=== PATIENT | female | born 1960 | race Caucasian/White ===

== ENCOUNTER → 2018-01-21 17:38 | Outpatient (CLI) | payer MEDICARE, SELFPAY ==
[2018-01-21 18:42] LABS: Basophils # 0.1 K/mm3 (0-0.2); Basophils % 0.6 % (0.1-2.0); Eosinophils # 0.1 K/mm3 (0.0-0.4); Hematocrit 48.7 % (37.0-47.0); Hemoglobin 15.8 g/dL (12.2-16.2); Lymphocytes # 2.7 K/mm3 (0.7-4.5); Lymphocytes % 30.5 K/mm3 (10-50); Mean Corpuscular HGB Conc 32.5 g/dL (31.8-35.4); Mean Corpuscular Hemoglobin 31.5 pg (27.0-31.2); Monocytes # 0.4 K/mm3 (0.1-1.0); Monocytes % 4.4 % (1.7-9.3); Neutrophils # 5.6 K/mm3 (1.8-7.8); Neutrophils % 63.4 % (37.0-80.0); Platelet Count 262 K/mm3 (142-424); Red Blood Count 5.02 M/mm3 (4.20-5.40); Red Cell Distribution Width 13.6 % (11.5-17.5); White Blood Count 8.8 K/mm3 (4.8-10.8)
[2018-01-21 19:15] LABS: Alanine Aminotransferase 17 U/L (12-78); Albumin Level 4.6 gm/dL (3.4-5.0); Albumin/Globulin Ratio 1.2 (1.1-1.8); Alkaline Phosphatase 121 U/L (46-116); Anion Gap 18.9 mEq/L (5-15); Aspartate Amino Transferase 19 U/L (15-37); Bilirubin,Total 0.3 mg/dL (0.2-1.0); Blood Urea Nitrogen 13 mg/dL (7-18); Calcium 9.1 mg/dL (8.5-10.1); Carbon Dioxide 22 mmol/L (21.0-32.0); Chloride 105 mmol/L (98-107); Chol/HDL Ratio 4.6 (1-3.5); Cholesterol 246 mg/dL (140-200); Creatinine,Serum 0.86 mg/dL (0.55-1.02); Estimated Glomerular Filt Rate 68 ml/min (>60); Free T4 (Free Thyroxine) 0.78 ng/dl (0.76-1.46); GFR (African American) 82 ML/MIN (>60); Globulin 3.9 gm/dl (1.3-3.2); Glucose 101 mg/dL (74-106); HDL Cholesterol 54 mg/dL (29-89); LDL Cholesterol 178 mg/dL (0-130); Potassium 3.9 mmoL/L (3.5-5.1); Sodium 142 mmol/L (136-145); Thyroid Stimulating Hormone 1.61 uIU/ml (0.358-3.740); Total Protein,Serum 8.5 gm/dL (6.4-8.2); Triglycerides 70 mg/dL (30-200); VLDL Cholesterol 14 mg/dL (0-40)
[2018-01-21 19:21] LABS: Erythrocyte Sedimentation Rate 12 mm/hr (0-30)
[2018-01-23 15:20] LABS: Vitamin D 25 Hydroxy 20.6 ng/mL (30.0-100.0)
== END ==
PROVIDERS: Visit Provider Emergency Medicine
DX: R53.83 Other fatigue (principal); E78.2 Mixed hyperlipidemia
CPT/HCPCS: 80053; 80061; 82652; 84439; 84443; 85025; 85651

== ENCOUNTER → 2018-02-26 20:48 | Outpatient (CLI) | payer MEDICARE, SELFPAY ==
[2018-02-26 22:57] LABS: Amphetamine/Metha Screen,Urine Negative ng/mL (<1000); Barbiturates Screen,Urine Negative ng/mL (<200); Benzodiazepines Screen,Urine Positive ng/mL (<200); Cannabinoid Screen,Urine Positive ng/mL (<50); Cocaine Screen,Urine Negative ng/mL (<300); Methadone Screen,Urine Negative ng/mL (<300); Opiate Screen,Urine Positive ng/mL (<300); Phencyclidine Screen,Urine Negative ng/mL (<25)
== END ==
PROVIDERS: Visit Provider Emergency Medicine
DX: Z79.899 Other long term (current) drug therapy (principal)
CPT/HCPCS: 80305

== ENCOUNTER → 2018-03-31 18:23 | Outpatient (CLI) | payer MEDICARE, SELFPAY ==
[2018-03-31 19:58] LABS: Amphetamine/Metha Screen,Urine Negative ng/mL (<1000); Barbiturates Screen,Urine Negative ng/mL (<200); Benzodiazepines Screen,Urine Positive ng/mL (<200); Cannabinoid Screen,Urine Negative ng/mL (<50); Cocaine Screen,Urine Negative ng/mL (<300); Methadone Screen,Urine Negative ng/mL (<300); Opiate Screen,Urine Positive ng/mL (<300); Phencyclidine Screen,Urine Negative ng/mL (<25)
== END ==
PROVIDERS: Visit Provider Emergency Medicine
DX: Z79.899 Other long term (current) drug therapy (principal)
CPT/HCPCS: 80305

== ENCOUNTER → 2018-04-28 12:46 | Outpatient (CLI) | payer MEDICARE, SELFPAY ==
--- NOTE | 2018-04-28 12:49 | MR_ITS ---
MR head/brain wo con Ordering Physician: Danuta Chávez MD Patient Age: 58 years: Female HISTORY: ITS.REASON: headache, neck pain Old injury 4 years ago. Headache right-sided neck pain. TECHNIQUE: Noncontrast MRI brain Multiplanar FLAIR, T1, T2 weighted images along with axial diffusion/ADC imaging performed on 1.5 T. Siemens, MRI.. COMPARISON :No previous head studies. FINDINGS . No mass lesion nor mass effect. No deep white matter lesions on the sensitive FLAIR and T2 images . No ischemia or infarct evident Supratentorial brain unremarkable. Pituitary and sella unremarkable. Cerebellum & fourth ventricle appear normal & satisfactory. Only note subtle minor asymmetry of the IACs. Most likely merely anatomical variation. The left IAC is more generous than the right IAC. Most likely reflects mainly anatomical variation. Specifically there is a slightly more generous benign-appearing bone & fatty bone marrow seen at apex of right temporal bone . Yields a slightly different angle and More narrow appearance right IAC versus left. No mass lesion is seen here at CP angles clear. May warrant correlation with auditory testing. If any cranial nerve VII or 8 abnormalities dedicated thin thin section scans pre and postcontrast through IACs may be warranted Normal cranial cervical junction on sagittal views. Minor anatomical asymmetry at medulla oblongata. Slightly more flattened appearance the left due to course of left vertebral artery. C1-C2 relationships normal.. Unremarkable upper most C-spine to the c2/3 level Survey images in the region of the [place] unremarkable. Patent left posterior communicating artery noted. . visualized paranasal sinuses are clear. Engorgement nasal turbinates with minor deviation nasal septum convexity to the left.. Orbits unremarkable. ------IMPRESSION 1. No significant appearing findings at today's MR brain. No mass lesion. No deep white matter signal abnormalities. No ischemic changes. 2. Note q minor asymmetry at IACs. Favor this merely anatomical asymmetry, which yields a slightly more narrowed appearance at right IAC vs left.... Note comments in text 3. Other minor observations in text- not felt of significance
--- NOTE | 2018-04-28 13:27 | XR_ITS ---
XR cervical spine w flex/ext CLINICAL INDICATION: ITS.REASON: headache, neck pain ORDERING PHYSICIAN: Danuta Chávez MD PATIENT AGE: 58 years Comparison: None FINDINGS: There is minimal anterior subluxation of C4 on C5 of 3 mm in flexion. This is normal in alignment in extension. There is degenerative disc disease at C5-C6 and C6-C7. No fracture or dislocation. Mild foraminal narrowing is noted on the right at C4-5 C5-6. Mild left foraminal narrowing at C5-C6. Carotid artery calcifications are present. IMPRESSION: 1. Degenerative disc disease at C5-C6 and C6-C7 with mild right foraminal narrowing at C4-5 and C5-6 and mild left foraminal narrowing at C6-7. 2. There is 3 mm anterior subluxation of C4 on C5 in flexion.
== END ==
PROVIDERS: PCP Emergency Medicine; Visit Provider Specialist
DX: M54.2 Cervicalgia (principal); R51 Headache
CPT/HCPCS: 70551; 72052

== ENCOUNTER → 2018-04-29 15:47 | Outpatient (CLI) | payer MEDICARE, SELFPAY ==
--- NOTE | 2018-04-29 15:52 | XR_ITS ---
Repeat View XR HISTORY: Neck pain, flexion-extension views ORDERING PHYSICIAN: Danuta Chávez MD PATIENT AGE: 58 years Comparison: 04/28/2018 FINDINGS: There is minimal anterior subluxation of C4 on C5 of 3 mm in flexion. This is normal in alignment in extension. There is degenerative disc disease at C5-C6 and C6-C7. No fracture or dislocation. Mild foraminal narrowing is noted on the right at C4-5 C5-6. Mild left foraminal narrowing at C5-C6. Carotid artery calcifications are present. IMPRESSION: 1. Degenerative disc disease at C5-C6 and C6-C7 with mild right foraminal narrowing at C4-5 and C5-6 and mild left foraminal narrowing at C6-7. 2. There is 3 mm anterior subluxation of C4 on C5 in flexion.
[2018-04-29 21:33] LABS: Amphetamine/Metha Screen,Urine Negative ng/mL (<1000); Barbiturates Screen,Urine Negative ng/mL (<200); Benzodiazepines Screen,Urine Positive ng/mL (<200); Cannabinoid Screen,Urine Negative ng/mL (<50); Cocaine Screen,Urine Negative ng/mL (<300); Methadone Screen,Urine Negative ng/mL (<300); Opiate Screen,Urine Positive ng/mL (<300); Phencyclidine Screen,Urine Negative ng/mL (<25)
== END ==
PROVIDERS: PCP Emergency Medicine; Visit Provider Specialist
DX: Z79.899 Other long term (current) drug therapy (principal)
CPT/HCPCS: 80305

== ENCOUNTER → 2018-04-29 18:16 | Outpatient (CLI) | payer MEDICARE, SELFPAY | PROVIDERS: Visit Provider Emergency Medicine | DX: Z79.899 Other long term (current) drug therapy (principal) | CPT/HCPCS: 80305 ==

== ENCOUNTER → 2018-05-19 12:55 | Outpatient (CLI) | payer MEDICARE, SELFPAY ==
--- NOTE | 2018-05-19 12:55 | MR_ITS ---
MR cervical spine wo con, MR 3-d myelogram/MRCP HISTORY: Neck pain . RT shoulder pain. ITS.REASON: neck pain ORDERING PHYSICIAN: Junior Johnson MD PATIENT AGE: 58 years Comparison: X-RAY 04-28-18 TECHNIQUE: Standard multiplanar multiecho sequences are performed without contrast. 3-D MIP and myelographic images are also rendered and reviewed FINDINGS: There is normal alignment. The craniocervical junction has an unremarkable appearance. C2-C3: Unremarkable. C3-C4: Borderline congenital narrowing of the canal is 10 mm without impingement. There is mild right-sided foraminal narrowing from uncovertebral hypertrophy C4-C5: Borderline congenital narrowing of the canal at 11 mm. There is some uncovertebral hypertrophy on the right with right-sided foraminal narrowing C5-C6: Degenerative disc disease with bulging disc. There is moderate bilateral foraminal narrowing from uncovertebral hypertrophy slightly greater on the right. There is narrowing of the canal at 10 mm but no flattening of the cord. C6-C7: Degenerative disc disease with bulging disc without cord impingement. Incidental note made of lipomatous involvement of C7 vertebral body. C7-T1: Unremarkable. IMPRESSION: Mild cervical spondylosis with degenerative disc disease along with uncovertebral hypertrophy and foraminal narrowing. There is borderline canal stenosis. No cord impingement or flattening. Please see above for detailed description at each level No extruded herniated disc evident
== END ==
PROVIDERS: PCP Emergency Medicine; Visit Provider Emergency Medicine
DX: M54.2 Cervicalgia (principal)
CPT/HCPCS: 72141; 76376

== ENCOUNTER → 2018-05-27 17:21 | Outpatient (CLI) | payer MEDICARE, SELFPAY ==
[2018-05-27 21:40] LABS: Amphetamine/Metha Screen,Urine Negative ng/mL (<1000); Barbiturates Screen,Urine Negative ng/mL (<200); Benzodiazepines Screen,Urine Positive ng/mL (<200); Cannabinoid Screen,Urine Negative ng/mL (<50); Cocaine Screen,Urine Negative ng/mL (<300); Methadone Screen,Urine Negative ng/mL (<300); Opiate Screen,Urine Positive ng/mL (<300); Phencyclidine Screen,Urine Negative ng/mL (<25)
== END ==
PROVIDERS: Visit Provider Emergency Medicine
DX: M47.812 Spondylosis without myelopathy or radiculopathy, cervical region (principal)
CPT/HCPCS: 80305

== ENCOUNTER → 2018-06-25 14:23 | Outpatient (CLI) | payer MEDICARE, SELFPAY ==
--- NOTE | 2018-06-25 14:25 | MR_ITS ---
MR lumbar spine wo con HISTORY: ITS.REASON: back pain ORDERING PHYSICIAN: Junior Johnson MD PATIENT AGE: 58 years Comparison: None TECHNIQUE: Standard multiplanar multiecho sequences are performed without contrast. 3-D MIP and myelographic images are also rendered and reviewed FINDINGS: Standard sagittal and axial sequences were performed. The marrow signal is normal in all lumbar vertebrae. The spinal canal is normal in size in the upper lumbar spine. At the L4-5 and L5-S1 levels there is moderate hypertrophic facet changes resulting in a borderline small spinal canal. In addition is a mild diffuse disc bulge L4-5 and this finding combined with hypertrophic facet changes result in mild bilateral neural foraminal narrowing. There is a small central disc protrusion L5-S1. The remaining lumbar disks appear normal. The myelogram sequence demonstrates mild multilevel extradural defects at the disc space levels most prominent at the L4-5 level. The conus is normal. IMPRESSION: Borderline spinal stenosis L4-5 secondary to a combination of mild diffuse disc bulge and hypertrophic facet changes, no other significant abnormality noted
== END ==
PROVIDERS: PCP Emergency Medicine; Visit Provider Emergency Medicine
DX: M54.9 Dorsalgia, unspecified (principal); M54.5 Low back pain
CPT/HCPCS: 72148; 76376

== ENCOUNTER → 2018-07-07 15:49 | Outpatient (POV) | payer MEDICARE, SELFPAY ==
[2018-07-07 15:58] VITALS: BP 158/99; PULSE 102; RESP 18; O2SAT 98
--- NOTE | 2018-07-08 15:03 | HMH.PMCON ---
Assessment and Plan (1) Spondylosis, cervical Current visit: No Status: Chronic Category: Medical Code(s): M47.812 - Spondylosis without myelopathy or radiculopathy, cervical region (2) DDD (degenerative disc disease), cervical Current visit: No Status: Chronic Category: Medical Code(s): M50.30 - Other cervical disc degeneration, unspecified cervical region (3) Back Pain Current visit: No Status: Chronic Category: Medical Code(s): M54.9 - Dorsalgia, unspecified - Assessment and plan all Dx Assessment and Plan for all problems:: Patient is uninterested in injective therapy. I discussed with her that that would be our first line of treatment with her condition. Patient is to take some information and call our office if she decides she would like to pursue this. Dr. Carvalho has reviewed this note and agrees with this plan of care. This note was dictated using voice recognition software and may contain errors or omissions HPI - Data of Consult Consult date: 07/07/18 Requesting Physician: Jodie Hensley APRN Primary Care Provider: Junior Johnson MD - Consult Narrative Reason for consult: Back pain History of present illness: Ms. Love is a 58 year old female who presents today for consultation in regards to her along with her neck pain. Patient has had back problems for years. Patient states it got bad in 2012 when she was thrown from a horse and landed on her back. She states is gradually gotten worse. She states that she has been to the neurologist here. She has tried and failed massage therapy physical therapy and pain meds. Patient does have an MRI and some x-rays showing borderline spinal stenosis mild disc bulge. And some cervical spondylosis. Patient and I discussed epidural injections she states she does not think she is interested in this at this time. She rates her pain a 6 out of 10 CC: Jodie Hensley APRN [facility] History I have reviewed the patient's past medical history: Yes Medical History: Reports:: Anxiety, Depression, Hyperlipidemia, Hypertension Laterality Cases: Bilateral: Mastectomy Other Surgeries: Yes: Cholecystectomy, Hysterectomy-Total, Other Amputation: No Fractures: No - *Social History Smoking Status: Current every day smoker Tobacco Type: cigarettes # Packs/Day (cigarettes): 1 #Yrs smoked (if former smoker): 44 Alcohol Intake: never Alcohol Intake Frequency:: holidays/special occasions only Substance Use Type: former substance user *Occupational Status:: disabled Housing: apartment Household Members: none *Travel in the last 8 weeks: None - Psychiatric History Expresses thoughts of harming self/others: None Suicide Plan Description: No Plan Pschychiatric History:: Reports:: Anxiety, Depression Family Hx:: Heart Attack, Cancer Review of Systems - Review of Systems ROS General: no recent weight change, no fever, no sleep disturbances Respiratory: no cough, no shortness of air, no recurring pulmonary infections Cardiovascular/Peripheral Vascular: No chest pain, No palpitations, no edema, no shortness of breath. Gastrointestinal: no incontinence, normal bowel movements reported Genitourinary: no incontinence Musculoskeletal: Back pain, neck pain Psychiatric: normal mood/ affect Neurological: [denies weakness in extremities], [denies balance issues] Meds Home Medications Medication Instructions Recorded Confirmed Type diazepam 10 mg tablet 10 mg PO BID PRN 01/21/18 05/27/18 History diclofenac 1 % topical gel 2 g TOPICAL QID 01/21/18 05/27/18 History hydroxyzine HCl 50 mg tablet 50 mg PO QID PRN 01/21/18 05/27/18 History cholecalciferol (vitamin D3) 1,000 1,000 unit PO DAILY 90 Days #90 cap 01/27/18 05/27/18 Rx unit capsule ergocalciferol (vitamin D2) 50,000 50,000 unit PO QWEEK 90 Days #14 01/27/18 05/27/18 Rx unit capsule cap rosuvastatin 40 mg tablet 40 mg PO QHS #90 tab 01/27/18 05/27/18 Rx nitroglycerin 0.4 mg sublingu
--- NOTE | 2018-07-08 15:06 | P.CONS_ITS ---
Assessment and Plan (1) Spondylosis, cervical Current visit: No Status: Chronic Category: Medical Code(s): M47.812 - Spondylosis without myelopathy or radiculopathy, cervical region (2) DDD (degenerative disc disease), cervical Current visit: No Status: Chronic Category: Medical Code(s): M50.30 - Other cervical disc degeneration, unspecified cervical region (3) Back Pain Current visit: No Status: Chronic Category: Medical Code(s): M54.9 - Dorsalgia, unspecified - Assessment and plan all Dx Assessment and Plan for all problems:: Patient is uninterested in injective therapy. I discussed with her that that would be our first line of treatment with her condition. Patient is to take some information and call our office if she decides she would like to pursue this. Dr. Carvalho has reviewed this note and agrees with this plan of care. This note was dictated using voice recognition software and may contain errors or omissions HPI - Data of Consult Consult date: 07/07/18 Requesting Physician: Jodie Hensley APRN Primary Care Provider: uJnior Johnson MD - Consult Narrative Reason for consult: Back pain History of present illness: Ms. Love is a 58 year old female who presents today for consultation in regards to her along with her neck pain. Patient has had back problems for years. Patient states it got bad in 2012 when she was thrown from a horse and landed on her back. She states is gradually gotten worse. She states that she has been to the neurologist here. She has tried and failed massage therapy physical therapy and pain meds. Patient does have an MRI and some x-rays showing borderline spinal stenosis mild disc bulge. And some cervical spondylosis. Patient and I discussed epidural injections she states she does not think she is interested in this at this time. She rates her pain a 6 out of 10 CC: Jodie Hensley APRN [facility] History I have reviewed the patient's past medical history: Yes Medical History: Reports:: Anxiety, Depression, Hyperlipidemia, Hypertension Laterality Cases: Bilateral: Mastectomy Other Surgeries: Yes: Cholecystectomy, Hysterectomy-Total, Other Amputation: No Fractures: No - *Social History Smoking Status: Current every day smoker Tobacco Type: cigarettes # Packs/Day (cigarettes): 1 #Yrs smoked (if former smoker): 44 Alcohol Intake: never Alcohol Intake Frequency:: holidays/special occasions only Substance Use Type: former substance user *Occupational Status:: disabled Housing: apartment Household Members: none *Travel in the last 8 weeks: None - Psychiatric History Expresses thoughts of harming self/others: None Suicide Plan Description: No Plan Pschychiatric History:: Reports:: Anxiety, Depression Family Hx:: Heart Attack, Cancer Review of Systems - Review of Systems ROS General: no recent weight change, no fever, no sleep disturbances Respiratory: no cough, no shortness of air, no recurring pulmonary infections Cardiovascular/Peripheral Vascular: No chest pain, No palpitations, no edema, no shortness of breath. Gastrointestinal: no incontinence, normal bowel movements reported Genitourinary: no incontinence Musculoskeletal: Back pain, neck pain Psychiatric: normal mood/ affect Neurological: [denies weakness in extremities], [denies balance issues] Meds Home Medications Medication Instructions Recorded Confirmed Type diazepam 10 mg tablet 10 mg PO BID PRN 01/21/18 03
== END ==
PROVIDERS: PCP Emergency Medicine; Visit Provider Clinical Nurse Specialist Family Health
DX: M47.812 Spondylosis without myelopathy or radiculopathy, cervical region (principal); M50.30 Other cervical disc degeneration, unspecified cervical region
CPT/HCPCS: 99202

== ENCOUNTER → 2018-07-22 18:13 | Outpatient (CLI) | payer MEDICARE, SELFPAY ==
[2018-07-22 19:09] LABS: Amphetamine/Metha Screen,Urine Negative ng/mL (<1000); Barbiturates Screen,Urine Negative ng/mL (<200); Benzodiazepines Screen,Urine Positive ng/mL (<200); Cannabinoid Screen,Urine Positive ng/mL (<50); Cocaine Screen,Urine Negative ng/mL (<300); Methadone Screen,Urine Negative ng/mL (<300); Opiate Screen,Urine Positive ng/mL (<300); Phencyclidine Screen,Urine Negative ng/mL (<25)
== END ==
PROVIDERS: Visit Provider Emergency Medicine
DX: M54.2 Cervicalgia (principal)
CPT/HCPCS: 80305

== ENCOUNTER → 2018-08-04 10:57 | Outpatient (CLI) | payer MEDICARE, SELFPAY ==
--- NOTE | 2018-08-04 11:09 | NM_ITS ---
CARDIOLITE SPECT MYOCARDIAL PERFUSION LEXISCAN, REST AND STRESS: [facility] REVIEW QGS EF AND WALL MOTION EVALUATION: QPS - PERFUSION EVALUATION HISTORY: Chest pain, SOB, Fatigue, HTN, Tobacco use, Family History DOSE: 10.71 mCi technetium 99m mibi intravenously at rest followed by 30.9 mCi technetium 99m mibi following the intravenous ministration of 0.4 mg of Lexiscan. Resting blood pressure is 181/87. Stress blood pressure 178/93. FINDINGS: Ejection fraction is calculated to be 62%. SPECT stress images reveal decreased activity in the mid anterior apical wall while rest images reveal no significant change. Gated images calculated ejection fraction of 62% with normal wall motion IMPRESSION: Mid anterior apical defect both stress and rest accompanied by normal ejection fraction and wall motion. This test is most consistent with breast attenuation however clinical correlation is advised
--- NOTE | 2018-08-04 12:17 | HMH.ITSHM ---
Current Home Medications as stated by this patient Ioana Love or customer success representative. []LORTAB VALIUM CRESTOR LISINOPRIL NITRO VITAMINS ASA AMLODIPINE AMITRIPTYLINE
== END ==
PROVIDERS: PCP Emergency Medicine; Visit Provider Emergency Medicine
DX: R07.9 Chest pain, unspecified (principal)
CPT/HCPCS: 78452; 93017; A9502; J2785

== ENCOUNTER → 2018-09-19 16:37 | Outpatient (CLI) | payer MEDICARE, SELFPAY ==
[2018-09-19 18:07] LABS: Amphetamine/Metha Screen,Urine Negative ng/mL (<1000); Barbiturates Screen,Urine Negative ng/mL (<200); Benzodiazepines Screen,Urine Positive ng/mL (<200); Cannabinoid Screen,Urine Positive ng/mL (<50); Cocaine Screen,Urine Negative ng/mL (<300); Methadone Screen,Urine Negative ng/mL (<300); Opiate Screen,Urine Positive ng/mL (<300); Phencyclidine Screen,Urine Negative ng/mL (<25)
== END ==
PROVIDERS: Visit Provider Emergency Medicine
DX: M54.2 Cervicalgia (principal)
CPT/HCPCS: 80305

== ENCOUNTER → 2018-11-19 17:17 | Outpatient (CLI) | payer MEDICARE, SELFPAY ==
[2018-11-19 19:03] LABS: Amphetamine/Metha Screen,Urine Negative ng/mL (<1000); Barbiturates Screen,Urine Negative ng/mL (<200); Benzodiazepines Screen,Urine Positive ng/mL (<200); Cannabinoid Screen,Urine Positive ng/mL (<50); Cocaine Screen,Urine Negative ng/mL (<300); Methadone Screen,Urine Negative ng/mL (<300); Opiate Screen,Urine Positive ng/mL (<300); Phencyclidine Screen,Urine Negative ng/mL (<25)
== END ==
PROVIDERS: Visit Provider Emergency Medicine
DX: M47.812 Spondylosis without myelopathy or radiculopathy, cervical region (principal)
CPT/HCPCS: 80305

== ENCOUNTER → 2019-01-09 17:21 | Outpatient (CLI) | payer MEDICARE, SELFPAY ==
[2019-01-09 18:13] LABS: Amphetamine/Metha Screen,Urine Negative ng/mL (<1000); Barbiturates Screen,Urine Negative ng/mL (<200); Benzodiazepines Screen,Urine Positive ng/mL (<200); Cannabinoid Screen,Urine Negative ng/mL (<50); Cocaine Screen,Urine Negative ng/mL (<300); Methadone Screen,Urine Negative ng/mL (<300); Opiate Screen,Urine Positive ng/mL (<300); Phencyclidine Screen,Urine Negative ng/mL (<25)
== END ==
PROVIDERS: Visit Provider Emergency Medicine
DX: G89.29 Other chronic pain (principal)
CPT/HCPCS: 80305

== ENCOUNTER → 2019-01-26 14:38 | Outpatient (CLI) | payer MEDICARE, SELFPAY ==
--- NOTE | 2019-01-26 14:47 | XR_ITS ---
PROCEDURE: XR SHOULDER RT MIN 2V CLINICAL INDICATION: Shoulder pain Right shoulder pain COMPARISON: No exams were available for comparison FINDINGS: No fracture, dislocation, lytic change, or blastic change evident. No significant degenerative change IMPRESSION: No acute findings. Dictated by: Izaiah Collazo MD 01/26/2019 15:09 Electronically signed by Izaaih Collazo MD in [place] 01/26/2019 15:10
== END ==
PROVIDERS: PCP Emergency Medicine; Visit Provider Orthopaedic Surgery
DX: M25.511 Pain in right shoulder (principal)
CPT/HCPCS: 73030

== ENCOUNTER → 2019-03-11 17:52 | Outpatient (CLI) | payer MEDICARE, SELFPAY ==
[2019-03-11 20:42] LABS: Amphetamine/Metha Screen,Urine Negative ng/mL (<1000); Barbiturates Screen,Urine Negative ng/mL (<200); Benzodiazepines Screen,Urine Positive ng/mL (<200); Cannabinoid Screen,Urine Positive ng/mL (<50); Cocaine Screen,Urine Negative ng/mL (<300); Methadone Screen,Urine Negative ng/mL (<300); Opiate Screen,Urine Positive ng/mL (<300); Phencyclidine Screen,Urine Negative ng/mL (<25)
== END ==
PROVIDERS: Visit Provider Emergency Medicine
DX: M54.2 Cervicalgia (principal)
CPT/HCPCS: 80305

== ENCOUNTER → 2019-05-08 17:18 | Outpatient (CLI) | payer MEDICARE, SELFPAY ==
[2019-05-08 18:28] LABS: Amphetamine/Metha Screen,Urine Negative ng/mL (<1000); Barbiturates Screen,Urine Negative ng/mL (<200); Benzodiazepines Screen,Urine Positive ng/mL (<200); Cannabinoid Screen,Urine Positive ng/mL (<50); Cocaine Screen,Urine Negative ng/mL (<300); Methadone Screen,Urine Negative ng/mL (<300); Opiate Screen,Urine Positive ng/mL (<300); Phencyclidine Screen,Urine Negative ng/mL (<25)
== END ==
PROVIDERS: Visit Provider Emergency Medicine
DX: M47.812 Spondylosis without myelopathy or radiculopathy, cervical region (principal)
CPT/HCPCS: 80305

== ENCOUNTER → 2019-08-03 16:43 | Outpatient (CLI) | payer MEDICARE, SELFPAY ==
[2019-08-03 17:30] LABS: Basophils # 0.1 K/mm3 (0-0.2); Basophils % 0.9 % (0.1-2.0); Chloride 108 mmol/L (98-107); Eosinophils # 0.2 K/mm3 (0.0-0.4); Eosinophils % 2.5 % (0.1-12.0); Hematocrit 41.8 % (37.0-47.0); Hemoglobin 13.4 g/dL (12.2-16.2); Lymphocytes % 33.6 % (10-50); Mean Corpuscular HGB Conc 32.2 g/dL (31.8-35.4); Mean Corpuscular Hemoglobin 30.6 pg (27.0-31.2); Mean Corpuscular Volume 95.2 fl (81-99); Monocytes # 0.3 K/mm3 (0.1-1.0); Monocytes % 5.6 % (1.7-9.3); Neutrophils # 3.5 K/mm3 (1.8-7.8); Neutrophils % 57.5 % (37.0-80.0); Platelet Count 255 K/mm3 (142-424); Potassium 4.6 mmoL/L (3.5-5.1); Red Blood Count 4.39 M/mm3 (4.20-5.40); Red Cell Distribution Width 12.5 % (11.5-17.5); Sodium 137 mmol/L (136-145)
[2019-08-03 17:32] LABS: Alanine Aminotransferase 17 U/L (12-78); Aspartate Amino Transferase 26 U/L (14-36); Blood Urea Nitrogen 13 mg/dl (7-17); Estimated Glomerular Filt Rate 85 ml/min (>60); GFR (African American) 103 ML/MIN (>60)
[2019-08-03 17:33] LABS: Albumin Level 4.5 g/dl (3.5-5.0); Albumin/Globulin Ratio 1.5 (1.1-1.8); Alkaline Phosphatase 46 U/L (38-126); Anion Gap 9.6 mEq/L (5-15); Bilirubin,Total 0.3 mg/dl (0.2-1.3); Calcium 9.7 mg/dl (8.4-10.2); Carbon Dioxide 24 mmol/L (22.0-30.0); Cholesterol 147 mg/dl (140-200); Glucose 110 mg/dl (74-100); Total Protein,Serum 7.5 g/dl (6.3-8.2); Triglycerides 111 mg/dl (30-150); VLDL Cholesterol 22 mg/dL (0-40)
[2019-08-03 17:34] LABS: Chol/HDL Ratio 2.8 (1-3.5); HDL Cholesterol 53 mg/dl (40-60)
[2019-08-03 17:45] LABS: Direct LDL Cholesterol 88.11 mg/dL (100-129)
[2019-08-03 17:50] LABS: T4 (Thyroxine) 6.1 ug/dl (5.53-11.0)
[2019-08-03 18:04] LABS: Thyroid Stimulating Hormone 1.19 uIU/mL (0.465-4.68)
== END ==
PROVIDERS: Visit Provider Emergency Medicine
DX: M25.50 Pain in unspecified joint (principal); A60.09 Herpesviral infection of other urogenital tract; I10 Essential (primary) hypertension; E66.3 Overweight
CPT/HCPCS: 80053; 80061; 82652; 84436; 84443; 85025

== ENCOUNTER → 2020-02-02 14:26 | Outpatient (CLI) | payer MEDICARE, SELFPAY ==
[2020-02-02 16:36] VITALS: PULSE 65; PULSE 68
== END ==
PROVIDERS: PCP Emergency Medicine; Visit Provider Emergency Medicine
DX: R06.02 Shortness of breath (principal)
CPT/HCPCS: 94060; 94640

== ENCOUNTER → 2020-03-31 13:55 | Outpatient (CLI) | payer MEDICARE, SELFPAY ==
--- NOTE | 2020-03-31 13:59 | XR_ITS ---
PROCEDURE: XR FOOT WT BEARING LT 3V CLINICAL INDICATION: foot pain COMPARISON: No exams were available for comparison FINDINGS: No fracture or dislocation. No lytic or blastic change. There is normal mineralization. The joint spaces are well-preserved. No significant degenerative/arthritic changes. No erosive changes evident. Other findings:There is a well-circumscribed cystic region involving distal aspect of the 1st metatarsal at the diaphyseal metaphyseal junction. The cyst measures approximately 5 mm contiguous with the medial cortical surface. IMPRESSION: No acute finding. Small periarticular benign-appearing cyst at the distal aspect of the 1st metatarsal Dictated by: Izaiah Collazo MD 03/31/2020 17:05 Izaiah Collazo MD in [place] 03/31/2020 17:05
--- NOTE | 2020-03-31 13:59 | XR_ITS ---
PROCEDURE: XR FOOT WT BEARING RT 3V CLINICAL INDICATION: foot pain COMPARISON: No exams were available for comparison FINDINGS: Mild hallux valgus with osteoarthritis of the 1st MTP joint and bunion formation at the distal aspect of the 1st metatarsal. The joint spaces are well-preserved. No significant degenerative/arthritic changes. No erosive changes evident. Other findings:None. IMPRESSION: Hallux valgus with osteoarthritis of the 1st MTP joint and bunion formation at the distal aspect of the 1st metatarsal. Dictated by: Izaiah Collazo MD 03/31/2020 17:04 Izaiah Collazo MD in [place] 03/31/2020 17:04
== END ==
PROVIDERS: PCP Emergency Medicine; Visit Provider Podiatrist
DX: M79.671 Pain in right foot (principal); M79.672 Pain in left foot
CPT/HCPCS: 73630

== ENCOUNTER → 2020-05-16 19:52 | Outpatient (CLI) | payer MEDICARE, SELFPAY ==
[2020-05-16 21:19] LABS: Amphetamine/Metha Screen,Urine Negative ng/ml (<1000)
[2020-05-16 21:20] LABS: Barbiturates Screen,Urine Negative ng/ml (<200); Benzodiazepines Screen,Urine Positive ng/ml (<200)
[2020-05-16 21:21] LABS: Cannabinoid Screen,Urine Positive ng/ml (<50)
[2020-05-16 21:22] LABS: Cocaine Screen,Urine Negative ng/ml (<300)
[2020-05-16 21:23] LABS: Methadone Screen,Urine Negative ng/ml (<300); Opiate Screen,Urine Positive ng/ml (<300)
[2020-05-16 21:24] LABS: Phencyclidine Screen,Urine Negative ng/ml (<25)
== END ==
PROVIDERS: Visit Provider Emergency Medicine
DX: M47.812 Spondylosis without myelopathy or radiculopathy, cervical region (principal); Z79.899 Other long term (current) drug therapy
CPT/HCPCS: 80305

== ENCOUNTER → 2020-07-11 17:16 | Outpatient (CLI) | payer MEDICARE, SELFPAY ==
[2020-07-11 18:21] LABS: Amphetamine/Metha Screen,Urine Negative ng/ml (<1000)
[2020-07-11 18:22] LABS: Barbiturates Screen,Urine Negative ng/ml (<200)
[2020-07-11 18:24] LABS: Benzodiazepines Screen,Urine Positive ng/ml (<200); Cannabinoid Screen,Urine Negative ng/ml (<50)
[2020-07-11 18:25] LABS: Cocaine Screen,Urine Negative ng/ml (<300)
[2020-07-11 18:26] LABS: Methadone Screen,Urine Negative ng/ml (<300); Opiate Screen,Urine Positive ng/ml (<300)
[2020-07-11 18:27] LABS: Phencyclidine Screen,Urine Negative ng/ml (<25)
== END ==
PROVIDERS: Visit Provider Emergency Medicine
DX: M47.812 Spondylosis without myelopathy or radiculopathy, cervical region (principal)
CPT/HCPCS: 80305

== ENCOUNTER → 2020-09-05 17:39 | Outpatient (CLI) | payer MEDICARE, SELFPAY ==
[2020-09-05 18:29] LABS: Amphetamine/Metha Screen,Urine Negative ng/ml (<1000)
[2020-09-05 18:31] LABS: Cannabinoid Screen,Urine Positive ng/ml (<50)
[2020-09-05 18:32] LABS: Barbiturates Screen,Urine Negative ng/ml (<200); Benzodiazepines Screen,Urine Positive ng/ml (<200)
[2020-09-05 18:33] LABS: Cocaine Screen,Urine Negative ng/ml (<300)
[2020-09-05 18:34] LABS: Methadone Screen,Urine Negative ng/ml (<300); Opiate Screen,Urine Positive ng/ml (<300)
[2020-09-05 18:35] LABS: Phencyclidine Screen,Urine Negative ng/ml (<25)
== END ==
PROVIDERS: Visit Provider Emergency Medicine
DX: E78.5 Hyperlipidemia, unspecified (principal); Z79.899 Other long term (current) drug therapy
CPT/HCPCS: 80305

== ENCOUNTER → 2020-10-31 18:52 | Outpatient (CLI) | payer MEDICARE, SELFPAY ==
[2020-10-31 20:39] LABS: Amphetamine/Metha Screen,Urine Negative ng/ml (<1000)
[2020-10-31 20:41] LABS: Barbiturates Screen,Urine Negative ng/ml (<200)
[2020-10-31 20:42] LABS: Benzodiazepines Screen,Urine Positive ng/ml (<200)
[2020-10-31 20:43] LABS: Cannabinoid Screen,Urine Negative ng/ml (<50); Cocaine Screen,Urine Negative ng/ml (<300)
[2020-10-31 20:44] LABS: Methadone Screen,Urine Negative ng/ml (<300)
[2020-10-31 20:45] LABS: Opiate Screen,Urine Positive ng/ml (<300); Phencyclidine Screen,Urine Negative ng/ml (<25)
== END ==
PROVIDERS: Visit Provider Emergency Medicine
DX: M47.812 Spondylosis without myelopathy or radiculopathy, cervical region (principal)
CPT/HCPCS: 80305

== ENCOUNTER → 2020-11-22 16:07 | Outpatient (POV) | payer MEDICARE, SELFPAY | PROVIDERS: Visit Provider Dermatology | DX: Z00.00 Encounter for general adult medical examination without abnormal findings (principal) ==

== ENCOUNTER → 2020-12-28 18:17 | Outpatient (CLI) | payer MEDICARE, SELFPAY ==
[2020-12-28 20:02] LABS: Amphetamine/Metha Screen,Urine Negative ng/ml (<1000); Barbiturates Screen,Urine Negative ng/ml (<200)
[2020-12-28 20:03] LABS: Benzodiazepines Screen,Urine Positive ng/ml (<200)
[2020-12-28 20:04] LABS: Cannabinoid Screen,Urine Positive ng/ml (<50); Cocaine Screen,Urine Negative ng/ml (<300)
[2020-12-28 20:05] LABS: Methadone Screen,Urine Negative ng/ml (<300)
[2020-12-28 20:06] LABS: Opiate Screen,Urine Positive ng/ml (<300); Phencyclidine Screen,Urine Negative ng/ml (<25)
== END ==
PROVIDERS: Visit Provider Emergency Medicine
DX: M47.812 Spondylosis without myelopathy or radiculopathy, cervical region (principal)
CPT/HCPCS: 80305

== ENCOUNTER → 2021-04-25 16:00 | Outpatient (CLI) | payer MEDICARE, SELFPAY | PROVIDERS: Visit Provider Emergency Medicine | DX: R69 Illness, unspecified (principal); Z20.822 Contact with and (suspected) exposure to COVID-19 | CPT/HCPCS: C9803; U0003; U0005 ==

== ENCOUNTER → 2021-08-18 16:05 | Outpatient (CLI) | payer MEDICARE, SELFPAY ==
[2021-08-18 13:40] LABS: Amphetamine/Metha Screen,Urine Negative ng/ml (<1000)
[2021-08-18 13:41] LABS: Barbiturates Screen,Urine Negative ng/ml (<200); Benzodiazepines Screen,Urine Positive ng/ml (<200)
[2021-08-18 13:42] LABS: Cannabinoid Screen,Urine Positive ng/ml (<50)
[2021-08-18 13:43] LABS: Cocaine Screen,Urine Negative ng/ml (<300); Methadone Screen,Urine Negative ng/ml (<300)
[2021-08-18 13:44] LABS: Opiate Screen,Urine Positive ng/ml (<300)
[2021-08-18 13:45] LABS: Phencyclidine Screen,Urine Negative ng/ml (<25)
== END ==
PROVIDERS: Visit Provider Emergency Medicine
DX: M47.812 Spondylosis without myelopathy or radiculopathy, cervical region (principal)
CPT/HCPCS: 80305

== ENCOUNTER → 2021-09-15 14:18 | Outpatient (CLI) | payer MEDICARE, SELFPAY ==
--- NOTE | 2021-09-15 14:19 | CT_ITS ---
FINAL REPORT TECHNIQUE: Axial imaging of the chest was obtained without contrast. Reformatted images were also obtained and reviewed.This study was performed with techniques to keep radiation doses as low as reasonably achievable, (ALARA). Individualized dose reduction technique using automated exposure control or adjustment of mA and/or kV according to the patient's size were employed. CLINICAL HISTORY: dyspnea/tob use FINDINGS: There is no axillary adenopathy. There is no hilar or mediastinal mass or adenopathy. Heart size is normal. There is no pericardial or pleural effusion. Limited images of the upper abdomen demonstrate postoperative change of cholecystectomy but are otherwise unremarkable.. There is mild pulmonary scarring. A 2 mm nodule is seen in the medial left lower lobe, favor granuloma. No suspicious infiltrate or nodule is identified on lung window images. IMPRESSION: No acute process. Reviewed, Interpreted and Dictated by Aldair Serrato III, MD Transcribed by Skyla Zepeda Authenticated and [facility]
== END ==
PROVIDERS: PCP Emergency Medicine; Visit Provider Nurse Practitioner Family
DX: E78.5 Hyperlipidemia, unspecified (principal); I10 Essential (primary) hypertension; R06.00 Dyspnea, unspecified; R53.83 Other fatigue; R61 Generalized hyperhidrosis; R94.31 Abnormal electrocardiogram [ECG] [EKG]; Z72.0 Tobacco use; I20.8 Other forms of angina pectoris
CPT/HCPCS: 71250

== ENCOUNTER → 2021-09-26 12:51 | Outpatient (CLI) | payer MEDICARE, SELFPAY ==
--- NOTE | 2021-09-26 14:12 | HMH.ITSHM ---
Current Home Medications as stated by this patient Ioana Love or district representative. []VALACYCLOVIR TRAZODONE ROSUVASTATIN RANOLAZINE PANTROPRAZOLE NITRO METOPROLOL LISINOPRIL HYDROCODONE ESTRADIOL DIAZEPAM BUPROPION ASA AMLODIPINE ALBUTEROL
== END ==
PROVIDERS: PCP Emergency Medicine; Visit Provider Nurse Practitioner Family
DX: E78.5 Hyperlipidemia, unspecified (principal); I10 Essential (primary) hypertension; R06.00 Dyspnea, unspecified; R53.83 Other fatigue; R61 Generalized hyperhidrosis; R94.31 Abnormal electrocardiogram [ECG] [EKG]; Z72.0 Tobacco use; I20.8 Other forms of angina pectoris
CPT/HCPCS: 78452; 93017; 93306; A9502; J2785

== ENCOUNTER → 2021-12-12 06:41 | Outpatient (CLI) | payer MEDICARE, SELFPAY ==
[2021-12-12 21:51] LABS: Amphetamine/Metha Screen,Urine Negative ng/ml (<1000)
[2021-12-12 21:52] LABS: Barbiturates Screen,Urine Negative ng/ml (<200)
[2021-12-12 21:53] LABS: Benzodiazepines Screen,Urine Positive ng/ml (<200)
[2021-12-12 21:54] LABS: Cannabinoid Screen,Urine Positive ng/ml (<50)
[2021-12-12 21:55] LABS: Cocaine Screen,Urine Negative ng/ml (<300); Methadone Screen,Urine Negative ng/ml (<300)
[2021-12-12 21:56] LABS: Opiate Screen,Urine Positive ng/ml (<300); Phencyclidine Screen,Urine Negative ng/ml (<25)
== END ==
PROVIDERS: PCP Emergency Medicine; Visit Provider Emergency Medicine
DX: M47.812 Spondylosis without myelopathy or radiculopathy, cervical region (principal)
CPT/HCPCS: 80305

== ENCOUNTER → 2022-02-07 15:30 | Outpatient (CLI) | payer MEDICARE, SELFPAY ==
[2022-02-07 17:55] LABS: Basophils # 0.1 K/mm3 (0-0.2); Basophils % 1.1 % (0.1-2.0); Eosinophils # 0.2 K/mm3 (0.0-0.4); Eosinophils % 2.8 % (0.1-12.0); Hematocrit 45.6 % (37.0-47.0); Hemoglobin 14.6 g/dL (12.2-16.2); Lymphocytes # 2.5 K/mm3 (0.7-4.5); Lymphocytes % 32.9 % (10-50); Mean Corpuscular Hemoglobin 31.5 pg (27.0-31.2); Mean Corpuscular Volume 98.6 fl (81-99); Mean Platelet Volume 9.5 fl (7.4-10.4); Monocytes # 0.4 K/mm3 (0.1-1.0); Monocytes % 4.6 % (1.7-9.3); Neutrophils # 4.4 K/mm3 (1.8-7.8); Neutrophils % 58.6 % (37.0-80.0); Platelet Count 252 K/mm3 (142-424); Red Blood Count 4.62 M/mm3 (4.20-5.40); White Blood Count 7.5 K/mm3 (4.8-10.8)
[2022-02-07 17:55] LABS: Barbiturates Screen,Urine Negative ng/ml (<200); Benzodiazepines Screen,Urine Positive ng/ml (<200)
[2022-02-07 17:56] LABS: Amphetamine/Metha Screen,Urine Negative ng/ml (<1000); Cannabinoid Screen,Urine Positive ng/ml (<50)
[2022-02-07 17:57] LABS: Cocaine Screen,Urine Negative ng/ml (<300)
[2022-02-07 17:58] LABS: Methadone Screen,Urine Negative ng/ml (<300)
[2022-02-07 17:59] LABS: Opiate Screen,Urine Positive ng/ml (<300); Phencyclidine Screen,Urine Negative ng/ml (<25)
[2022-02-07 19:45] LABS: Alanine Aminotransferase 13 U/L (12-78); Albumin Level 4.2 g/dl (3.5-5.0); Albumin/Globulin Ratio 1.6 (1.1-1.8); Alkaline Phosphatase 99 U/L (38-126); Anion Gap 10.4 mEq/L (5-15); Aspartate Amino Transferase 21 U/L (14-36); Bilirubin,Total 0.4 mg/dl (0.2-1.3); Blood Urea Nitrogen 14 mg/dl (7-17); Calcium 9.3 mg/dl (8.4-10.2); Carbon Dioxide 26 mmol/L (22.0-30.0); Chloride 104 mmol/L (98-107); Chol/HDL Ratio 3.2 (1-3.5); Cholesterol 165 mg/dl (140-200); Estimated Glomerular Filt Rate 85 ml/min (>60); GFR (African American) 102 ML/MIN (>60); Globulin 2.7 g/dL (1.3-3.2); Glucose 85 mg/dl (74-100); HDL Cholesterol 51 mg/dl (40-60); Potassium 4.4 mmoL/L (3.5-5.1); Sodium 136 mmol/L (136-145); Total Protein,Serum 6.9 g/dl (6.3-8.2); Triglycerides 128 mg/dl (30-150); VLDL Cholesterol 26 mg/dL (0-40)
[2022-02-07 19:58] LABS: Direct LDL Cholesterol 78.23 mg/dL (100-129)
[2022-02-07 20:03] LABS: 25-OH Vitamin D, Total 36.5 ng/mL (30-100)
[2022-02-07 20:04] LABS: Free T4 (Free Thyroxine) 0.66 ng/dl (0.78-2.19)
[2022-02-07 20:17] LABS: Thyroid Stimulating Hormone 2.37 uIU/mL (0.465-4.68)
== END ==
PROVIDERS: PCP Emergency Medicine; Visit Provider Emergency Medicine
DX: M47.812 Spondylosis without myelopathy or radiculopathy, cervical region (principal); Z79.899 Other long term (current) drug therapy; E55.9 Vitamin D deficiency, unspecified; E66.3 Overweight
CPT/HCPCS: 80053; 80061; 80305; 82306; 84439; 84443; 85025

== ENCOUNTER 2022-05-30 15:32 | Observation (INO) | payer MEDICARE, SELFPAY ==
[2022-05-30] VITALS (11 sets, daily range): BP systolic 112–146; BP diastolic 66–88; PULSE 50–109; RESP 8–18; TEMP 36.6–36.9; O2SAT 95–99; BMI 27.4; BMI 27.6
--- NOTE | 2022-05-30 15:28 | ECG_ITS ---
APPROVED REPORT Exam: Resting ECG HR:68 bpm ECG Measurements Heart Rate 68 AXES SD 144 P 54 QRSd 85 QRS 35 QT 391 T 46 QTc 409 Conclusion SINUS RHYTHM LEFT ATRIALAbnormality BORDERLINE ECG UNCONFIRMED REPORT Electronically signed by : Kei Porter MD 05/30/2022 17:56:49
--- NOTE | 2022-05-30 15:44 | HMH.EDCP ---
Discharge Plan Disposition Patient Disposition: Admitted As Inpatient Condition: Fair Prescriptions Prescriptions: No Action trazodone 50 mg tablet 50 mg PO HS PRN (Reason: Pain) nitroglycerin [Nitrostat] 0.4 mg tablet, sublingual 0.4 mg SUBLINGUAL Q5-15M PRN (Reason: chest pain) Qty: 30 1RF Rx Instructions: until response; do not exceed 3 doses per episode aspirin [Adult Low Dose Aspirin] 81 mg tablet,delayed release (DR/EC) 81 mg PO DAILY diazepam 10 mg tablet 10 mg PO BID PRN (Reason: anxiety) Qty: 60 1RF hydrocodone-acetaminophen 10-325 mg tablet 1 tab PO QID Qty: 120 0RF metoprolol succinate 50 mg tablet extended release 24 hr 50 mg PO BID lisinopril 20 mg tablet 20 mg PO DAILY valacyclovir 500 mg tablet See Rx Instructions .ROUTE .COMPLEX Rx Instructions: TAKE ONE TABLET BY MOUTH DAILY estradiol 1 mg tablet See Rx Instructions .ROUTE .COMPLEX Rx Instructions: TAKE ONE TABLET BY MOUTH EVERY DAY amlodipine 10 mg tablet See Rx Instructions .ROUTE .COMPLEX Rx Instructions: TAKE ONE TABLET BY MOUTH DAILY pantoprazole 40 mg tablet,delayed release (DR/EC) See Rx Instructions .ROUTE .COMPLEX Rx Instructions: TAKE ONE TABLET BY MOUTH DAILY mupirocin 2 % ointment 1 applic TOPICAL BID albuterol sulfate 90 mcg/actuation HFA aerosol inhaler See Rx Instructions .ROUTE .COMPLEX PRN (Reason: asthma) Rx Instructions: inhale 2 PUFFS every 4-6 Hours As Needed for shortness of breath or wheezing rosuvastatin 40 mg tablet See Rx Instructions .ROUTE .COMPLEX Rx Instructions: TAKE ONE TABLET BY MOUTH DAILY bupropion HCl 300 mg tablet extended release 24 hr See Rx Instructions .ROUTE .COMPLEX Rx Instructions: TAKE ONE TABLET BY MOUTH EVERY MORNING Anoro Ellipta 62.5-25 mcg/actuation blister with device See Rx Instructions .ROUTE .COMPLEX Rx Instructions: USE ONE PUFF DAILY Clinical Impressions Clinical Impression: Chest pain in adult Discharge ED Provider: Mingo Kovacs Chest Pain HPI General Chief Complaint: Chest Pain Stated Complaint: chest pain Time Seen by Provider: 05/30/22 15:34 Mode of Arrival: Ambulatory Source of Information: Patient Limitations: No Limitations Description of Symptoms (Recalled from ER Triage Doc. by RN): pt sent over form dr chung office. pt went in to see dr carter for regular check up visit. pt described chest pain symptoms, ekg was done at his office, pt was then sent to dr chung office. from there pt was sent to ed for further evaluation. pt reports constant chest pain with intensity that comes and goes. ongoing since saturday. pt thought it was indigestion but the pain has continued. History of Present Illness HPI narrative: Patient presents with continuous chest pain that she states she has had since this past Saturday. She did take nitroglycerin tablets with reported relief. She has had some vomiting initially although none today. She also notes intermittent associated mild shortness of air but denies diaphoresis she does have a history of prior catheterization going back approximately 10 years ago that she states demonstrated approximate 60% blockage in one of the arteries. Related Data Home Medications Medication Instructions Recorded Confirmed aspirin 81 mg tablet,delayed 81 mg PO DAILY Heart disease 07/22/18 05/30/22 release (Adult Low Dose Aspirin) trazodone 50 mg tablet 50 mg PO HS PRN Pain 12/28/20 05/30/22 albuterol sulfate 90 mcg/actuation See Rx Instructions .Route 05/30/22 05/30/22 aerosol inhaler .COMPLEX PRN asthma amlodipine 10 mg tablet See Rx Instructions .Route 05/30/22 05/30/22 .COMPLEX High blood pressure bupropion HCl 300 mg 24 hr tablet, See Rx Instructions .Route 05/30/22 05/30/22 extended release .COMPLEX . estradiol 1 mg tablet See Rx Instructions .Route 05/30/22 05/30/22 .COMPLEX . lisin
--- NOTE | 2022-05-30 15:58 | XR_ITS ---
PROCEDURE INFORMATION: Exam: XR Chest Exam date and time: 05/30/2022 4:30 PM Age: 62 years old Clinical indication: Other: Chest pain TECHNIQUE: Imaging protocol: Radiologic exam of the chest. Views: 1 view. COMPARISON: CT CHEST WO CON 09/15/2021 2:36 PM FINDINGS: Lungs: Lungs are clear. No pulmonary edema or consolidation. Pleural spaces: No pleural effusion. No pneumothorax. Heart/Mediastinum: Cardiomediastinal silhouette is normal. Vasculature: Mild aortic calcifications. Bones/joints: No acute abnormality. IMPRESSION: No acute abnormality.
[2022-05-30 16:06] LABS: Chloride 105 mmol/L (98-107); Potassium 4.7 mmoL/L (3.5-5.1); Sodium 138 mmol/L (136-145)
[2022-05-30 16:09] LABS: Coronavirus 19, PCR Not Detected (NotDetected); Influenza A, PCR Not Detected (NotDetected); Influenza B, PCR Not Detected (NotDetected)
[2022-05-30 16:09] LABS: Blood Urea Nitrogen 19 mg/dl (7-17); Creatinine Clearance Estimated 69 mL/min (50-200); Estimated Glomerular Filt Rate 72 ml/min (>60); GFR (African American) 87 ML/MIN (>60)
[2022-05-30 16:10] LABS: Anion Gap 15.7 mEq/L (5-15); Calcium 9.1 mg/dl (8.4-10.2); Carbon Dioxide 22 mmol/L (22.0-30.0); Glucose 88 mg/dl (74-100)
[2022-05-30 16:16] LABS: Basophils # 0.1 K/mm3 (0-0.2); Basophils % 1.3 % (0.1-2.0); Eosinophils # 0.2 K/mm3 (0.0-0.4); Eosinophils % 1.7 % (0.1-12.0); Hematocrit 48.5 % (37.0-47.0); Lymphocytes # 3.3 K/mm3 (0.7-4.5); Lymphocytes % 32.3 % (10-50); Mean Corpuscular HGB Conc 32.9 g/dL (31.8-35.4); Mean Corpuscular Hemoglobin 31.6 pg (27.0-31.2); Mean Platelet Volume 8.8 fl (7.4-10.4); Monocytes # 0.4 K/mm3 (0.1-1.0); Monocytes % 4.2 % (1.7-9.3); Neutrophils # 6.2 K/mm3 (1.8-7.8); Neutrophils % 60.5 % (37.0-80.0); Platelet Count 281 K/mm3 (142-424); Red Blood Count 5.05 M/mm3 (4.20-5.40); Red Cell Distribution Width 13.6 % (11.5-17.5); White Blood Count 10.3 K/mm3 (4.8-10.8)
[2022-05-30 16:29] LABS: Troponin I < 0.01 ng/ml (0.00-0.034)
--- NOTE | 2022-05-30 16:44 | PC.NURSE ---
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
--- NOTE | 2022-05-30 16:45 | PC.NURSE ---
ER speaking to [facility] with cardiology
[2022-05-30 17:15] LABS: D-Dimer 0.77 ug/mL (0.0-0.5)
--- NOTE | 2022-05-30 17:22 | CT_ITS ---
PROCEDURE INFORMATION: Exam: CTA Chest With Contrast Exam date and time: 05/30/2022 5:43 PM Age: 62 years old Clinical indication: Pain; Chest pressure; Additional info: Cp TECHNIQUE: Imaging protocol: Computed tomographic angiography of the chest with contrast. 3D rendering (Not supervised by radiologist): MIP and/or 3D reconstructed images were created by the technologist. Radiation optimization: All CT scans at this facility use at least one of these dose optimization techniques: automated exposure control; mA and/or kV adjustment per patient size (includes targeted exams where dose is matched to clinical indication); or iterative reconstruction. Contrast material: ISOVUE 370; Contrast volume: 70 ml; Contrast route: INTRAVENOUS (IV); REPORTING DATA: Count of CT and Cardiac NM exams in prior 12 months: This patient has received 2 known CTs and 0 known cardiac nuclear medicine studies in the 12 months prior to the current study. COMPARISON: CT CHEST WO CON 09/15/2021 2:36 PM FINDINGS: Pulmonary arteries: No pulmonary artery embolism identified. Aorta: No aortic aneurysm. No aortic dissection or evidence of acute aortic abnormality. Multifocal mixed plaque along the aortic arch, descending thoracic aorta, and included abdominal aorta. Noncalcified plaque along the included upper abdominal aorta measures up to 5-6 mm in thickness. Lungs: Mild pulmonary emphysema. No consolidation. Subpleural stable 3 mm and new 4 mm nodule in the left lower lobe (series 5, image 82 and 64). Stable punctate calcified granuloma in the medial left lower lobe. Pleural spaces: No pneumothorax. No pleural effusion. Heart: Heart size is normal. No pericardial effusion. Coronary arteries: Mild coronary artery calcifications. Lymph nodes: No adenopathy. Diaphragm: Small sliding-type hiatal hernia. Bones/joints: No acute osseous abnormality or suspicious osseous lesion. Soft tissues: Bilateral breast implants appear unchanged. Other findings: No acute abnormality in the included upper abdomen. Status post cholecystectomy. IMPRESSION: 1. No pulmonary artery embolism identified. 2. Aortic atherosclerosis with no aneurysm, dissection, or evidence of acute abnormality. 3. Mild coronary artery calcifications. 4. Mild pulmonary emphysema. Few small pulmonary nodules as above. As per Fleischner Society 2017 guidelines for follow-up and management of pulmonary nodules: For patients at low risk (minimal or absent history of smoking and of other known risk factors), no routine follow-up is indicated. For patients at high risk (history of smoking or of other known risk factors), consider optional CT Chest at 12 months. 5. Small sliding-type hiatal hernia. 6. Other chronic and incidental findings as detailed above. COMMENTS: In the absence of a history or active diagnosis of lung cancer, it is recommended that this patient with emphysema be evaluated for enrollment in a low dose CT lung cancer screening program.
--- NOTE | 2022-05-30 17:34 | PC.NURSE ---
Addendum entered by Carol Mann RN 05/30/22 17:50: JAM WALDRON states will call dr. browning back after CT for PE is resulted Original Note: JAM WALDRON speaking with dr. browning
--- NOTE | 2022-05-30 17:41 | PC.NURSE ---
Patient to CT via wheelchair
--- NOTE | 2022-05-30 17:48 | PC.NURSE ---
pt return from CT
--- NOTE | 2022-05-30 18:15 | PC.NURSE ---
rounded on pt at this time, updated pt we are just waiting on Ct scan results and then will contact dr. browning again for admission
--- NOTE | 2022-05-30 18:17 | PC.NURSE ---
patient given blanket and lights turned down for comfort
--- NOTE | 2022-05-30 18:21 | PC.NURSE ---
JAM WALDRON speaking with dr. browning for admission
--- NOTE | 2022-05-30 18:21 | PC.NURSE ---
notified housesmith of admission
--- NOTE | 2022-05-30 18:36 | PC.NURSE ---
report called to marciano amin on second floor at this time.
--- NOTE | 2022-05-30 18:37 | PC.NURSE ---
,pm transporting pt to second floor via wheelchair
--- NOTE | 2022-05-30 18:42 | PC.NURSE ---
arrived to floor by w/c from ED at 18:38
[2022-05-30 19:37] LABS: Troponin I < 0.01 ng/ml (0.00-0.034)
--- NOTE | 2022-05-30 20:08 | EXP.HP ---
History of Present Illness *Admission Date: 05/30/22 *Reason for visit:: Chest Pain *History of present illness: Ms. Love is a 62-year-old female with a past medical history of Chronic Tobacco Use, COPD, HTN, Hyperlipidemia, Anxiety Disorder. She presented to [facility] through the ER after being seen by her PCP and Cardiology with complaints of chest pain on and off x 4 days associated with nausea, vomiting, mild shortness of air. The patient reports that the chest pain initially began on 05/27/22 and would come and go, she reports that the pain did not respond to Pepto Bismo, she reports that she proceeded to take Nitroglycerin that helped the pain after taking 3 tablets sublingual. She reports that she went to see her PCP today for a 2-month visit in the clinic for chronic care issues and mentioned the pain and he had her go to the Cardiology office. She was then sent to the ER for further evaluation and Cardiology consultation. In the ER, the patient underwent an EKG that showed NSR with rate [address] segment elevation or depression, QTC was 409. Initial Troponin was <0.01. Covid and Flu testing were negatuve, CTA of the chest showed Aortic Atherosclerosis with mild pulmonary edema and no Pulmonary Embolus. The patient will be admitted with initial impression: of Unstable Angina. Cardiology has been consulted, she will be monitored overnight on telemetry, NPO in the am, have echo, FLP in am and cardiology has been consulted. She has been placed on Heparin sub q. The plan of care was discussed with the patient at bedside on admission in the Medical Surgical unit. The patient verbalized understanding and agreement with the plan of care. [facility] Disclaimer: The information contained in this section may have been updated after the patient was seen, as this information can be updated by other users. Medical History Anxiety Asthma Cervical stenosis of spinal canal DDD (degenerative disc disease) Depression GERD (gastroesophageal reflux disease) Herpes Surgical History H/O bilateral mastectomy Hx of cholecystectomy Family History Other Cancer Heart attack Social History Smoking Status: Current every day smoker tobacco type: cigarettes packs per day: 1 alcohol intake: never substance use type: former substance user current occupational status: disabled Travel in the last 8 weeks: None household members: none housing: apartment Review of Systems Review of Systems Review of systems:: pertinent systems reviewed and negative unless documented below Constitutional Constitutional: Reports system reviewed and no additional complaints, except as documented Eyes Eyes: Reports system reviewed and no additional complaints, except as documented ENT Ears, Nose, Mouth, and Throat: Reports system reviewed and no additional complaints, except as documented *Cardiovascular Cardiovascular: Reports chest pain, Reports chest pain at rest, Reports chest pain with activity and Reports dyspnea *Respiratory Respiratory: Reports dyspnea *Gastrointestinal Gastrointestinal: Reports vomiting *Genitourinary Genitourinary: Reports system reviewed and no additional complaints, except as documented *Musculoskeletal Musculoskeletal: Reports system reviewed and no additional complaints, except as documented Integumentary/Breasts Skin/Breast: Reports system reviewed and no additional complaints, except as documented *Neurologic Neurologic: Reports system reviewed and no additional complaints, except as documented Psychiatric Psychiatric: Reports system reviewed and no additional complaints, except as documented Endocrine Endocrine: Reports system reviewed and no additional complaints, except as documented Hem
[2022-05-30 23:04] LABS: Troponin I < 0.01 ng/ml (0.00-0.034)
[2022-05-31] VITALS (24 sets, daily range): BP systolic 85–155; BP diastolic 50–90; PULSE 50–70; RESP 16–20; TEMP 36.6–36.9; O2SAT 93–100; BMI 27.7; BMI 27.6
--- NOTE | 2022-05-31 00:28 | PC.NURSE ---
COURTESY ROUND- PATIENT AWAKE AND SITTING UP IN BED . PATIENT VOICED NO NEEDS AT THIS TIME .
--- NOTE | 2022-05-31 04:21 | PC.NURSE ---
COURTESY ROUND- PATIENT AWAKE BUT VOICED NO NEEDS AT THIS TIME. TRASH EMPTIED
--- NOTE | 2022-05-31 04:40 | PC.NURSE ---
Pt has complained of chronic pain one time this shift. Medicated per MAY. No other complaints. Sinus cammie on tele. Remains on RA tolerating well. No complaints of CP or SOA. Pt ambulates independently to bathroom.
[2022-05-31 06:25] LABS: Alanine Aminotransferase 72 U/L (12-78); Albumin Level 4.3 g/dl (3.5-5.0); Albumin/Globulin Ratio 1.5 (1.1-1.8); Alkaline Phosphatase 121 U/L (38-126); Aspartate Amino Transferase 71 U/L (14-36); Bilirubin,Total 0.6 mg/dl (0.2-1.3); Blood Urea Nitrogen 19 mg/dl (7-17); Calcium 8.5 mg/dl (8.4-10.2); Carbon Dioxide 24 mmol/L (22.0-30.0); Chloride 105 mmol/L (98-107); Chol/HDL Ratio 3.5 (1-3.5); Cholesterol 161 mg/dl (140-200); Creatinine Clearance Estimated 70 mL/min (50-200); Estimated Glomerular Filt Rate 84 ml/min (>60); GFR (African American) 102 ML/MIN (>60); Globulin 2.9 g/dL (1.3-3.2); Glucose 83 mg/dl (74-100); HDL Cholesterol 46 mg/dl (40-60); Magnesium 2.4 mg/dl (1.6-2.3); Total Protein,Serum 7.2 g/dl (6.3-8.2); Triglycerides 128 mg/dl (30-150); VLDL Cholesterol 26 mg/dL (0-40)
--- NOTE | 2022-05-31 06:26 | PC.NURSE ---
Pts wallet locked in drawer in stitch bonding machine room, witnessed with Claudio Fountain RN
[2022-05-31 06:33] LABS: Anion Gap 10.8 mEq/L (5-15); Potassium 3.8 mmoL/L (3.5-5.1); Sodium 136 mmol/L (136-145)
[2022-05-31 06:36] LABS: Direct LDL Cholesterol 82.42 mg/dL (100-129)
[2022-05-31 06:43] LABS: Basophils # 0.1 K/mm3 (0-0.2); Basophils % 1.6 % (0.1-2.0); Eosinophils # 0.1 K/mm3 (0.0-0.4); Hematocrit 44.8 % (37.0-47.0); Hemoglobin 14.5 g/dL (12.2-16.2); Lymphocytes # 3.1 K/mm3 (0.7-4.5); Lymphocytes % 56.2 % (10-50); Mean Corpuscular HGB Conc 32.3 g/dL (31.8-35.4); Mean Corpuscular Hemoglobin 31.4 pg (27.0-31.2); Mean Corpuscular Volume 97.3 fl (81-99); Mean Platelet Volume 8.7 fl (7.4-10.4); Monocytes # 0.3 K/mm3 (0.1-1.0); Monocytes % 4.8 % (1.7-9.3); Neutrophils # 1.9 K/mm3 (1.8-7.8); Neutrophils % 35.4 % (37.0-80.0); Platelet Count 223 K/mm3 (142-424); Red Cell Distribution Width 13.5 % (11.5-17.5); White Blood Count 5.5 K/mm3 (4.8-10.8)
[2022-05-31 06:45] LABS: MANUAL DIFFERENTIAL MANUAL DIFFERENTIAL (MANUAL DIFF)
[2022-05-31 07:58] LABS: Eosinophils % 2 % (0-3); Lymphocytes % 57 % (10-50); Monocytes % 4 % (2-9); Neutrophils % 36 % (42-76); Platelet Estimate Normal; RBC Morphology Normal; Total Cells Counted 100
--- NOTE | 2022-05-31 08:23 | HMH.PHAINT1 ---
Pharmacy Intervention Comments: Medication reconciliation completed using external fill history and discussion with PCP office
--- NOTE | 2022-05-31 08:48 | HMH.PHAINT1 ---
Pharmacy Intervention Comments: HOME MEDICATION CLARIFIED AFTER SPEAKING AT LENGTH WITH PATIENT
--- NOTE | 2022-05-31 09:17 | EXP.CARD.CON ---
History of Present Illness History of Present Illness Consult date: 05/31/22 Requesting physician: Jono Gage Consult reason: chest pain Chief complaint: chest pain History of present illness: 60-year-old white female with history of hypertension, hyperlipidemia, coronary artery disease presented to cardiology clinic 05/30/2022 from primary care provider's office with complaints of chest pain. Patient reported midsternal chest pressure radiating into back x4 days, waxing and waning but overall constant, associated with nausea and 1 episode of vomiting. Patient reports at first she thought it was GERD related but after taking 2 bottles of Pepto-Bismol with no relief she began to worry pain was related to her heart. She did get mild relief with nitro. Patient was sent to emergency department for further evaluation. Serial troponins were negative, EKG was negative for acute ischemic changes. CTA chest and xray of chest both were negative for acute ischemic changes. Patient continues to have midsternal chest pressure. On CTA of chest, mild coronary artery calcifications were noted. Patient reports she had a LHC 10 years ago and was told she had a 60 percent blockage at that time but recieved no stents. Patient had a normal stress test and normal echo in 2021. [facility] Disclaimer: The information contained in this section may have been updated after the patient was seen, as this information can be updated by other users. Medical History Anxiety Asthma Cervical stenosis of spinal canal DDD (degenerative disc disease) Depression GERD (gastroesophageal reflux disease) Herpes Surgical History H/O bilateral mastectomy Hx of cholecystectomy Family History Other Cancer Heart attack Social History Smoking Status: Current every day smoker tobacco type: cigarettes packs per day: 1 alcohol intake: never substance use type: former substance user current occupational status: disabled Travel in the last 8 weeks: None household members: none housing: apartment Review of Systems Review of Systems Review of systems:: pertinent systems reviewed and negative unless documented below Constitutional Constitutional: Reports system reviewed and no additional complaints, except as documented *Cardiovascular Cardiovascular: Reports chest pain and Reports dyspnea *Respiratory Respiratory: Reports dyspnea *Gastrointestinal Gastrointestinal: Reports nausea and Reports vomiting *Neurologic Neurologic: Reports system reviewed and no additional complaints, except as documented and Denies confusion Psychiatric Psychiatric: Reports system reviewed and no additional complaints, except as documented and Denies confusion Exam Data for Last 24 hours Vital signs and Labs for Last 24 Hours: Temp Pulse Resp BP Pulse Ox 98.0 F 54 L 18 109/54 L 96 05/31/22 07:47 05/31/22 07:47 05/31/22 07:47 05/31/22 07:47 05/31/22 07:47 Laboratory Results - last 24 hr 05/30/22 15:35: WBC 10.3, RBC 5.05, Hgb 16.0, Hct 48.5 H, MCV 96.0, MCH 31.6 H, MCHC 32.9, RDW 13.6, Plt Count 281, MPV 8.8, Neut % (Auto) 60.5, Lymph % (Auto) 32.3, Routt % (Auto) 4.2, Eos % (Auto) 1.7, Baso % (Auto) 1.3, Neut # (Auto) 6.2, Lymph # (Auto) 3.3, Routt # (Auto) 0.4, Eos # (Auto) 0.2, Baso # (Auto) 0.1 05/30/22 15:35: Troponin I < 0.01 05/30/22 15:35: Sodium 138, Potassium 4.7, Chloride 105, Carbon Dioxide 22, Anion Gap 15.7 H, BUN 19 H, Creatinine 0.80, Estimated Creat Clear 69, Estimated GFR 72, Est GFR ( Amer) 87, Glucose 88, Calcium 9.1 05/30/22 15:35: D-Dimer 0.77 H 05/30/22 16:03: SARS-CoV-2 (PCR) Not detected, Influenza A Untype (PCR) Not detected, Influenza Type B (PCR) Not detected 05/30/22 18:56: Troponin I < 0.01 05/30/22 22:10: Troponin I < 0.01
--- NOTE | 2022-05-31 09:25 | PC.NURSE ---
spoke with Mary about giving metoprolol with HR in the 50's, Mary since it was a home med it was ok to give
--- NOTE | 2022-05-31 09:29 | IR_ITS ---
APPROVED REPORT Patient Location: Inpatient Public Service Administrator: SOURAV Lebron RT (R) PROCEDURES Selective coronary angiogram FFR to the LAD Drug-eluting stent deployment to the proximal and mid LAD in a contiguous manner Drug-eluting stent deployment to the ostial proximal mid large first diagonal artery Drug-eluting stent deployment to the proximal and mid dominant right coronary artery INDICATION Coronary artery disease, Angiographic ambiguous LAD disease, Unstable angina Informed consent was obtained prior to the procedure. COMPLICATIONS None Estimated Blood Loss: Less than 10 mls TECHNIQUE One percent lidocaine used to anesthetize the right anterior aspect of the wrist. The right radial artery was accessed via the Seldinger technique. A 6 Italian sheath was placed in the right radial artery. 2.5 mg of verapamil, 800 mcg of nitroglycerin, 1mg Lidocaine and 5000 U Heparin were given through the arterial sheath. The papa catheter was also used to perform diagnostic left coronary artery and right coronary angiography. JANUARY II flow was present down the LAD and there was an angiographic ambiguous lesion in the proximal LAD adjacent to the first diagonal artery. Although the first diagonal artery was critically stenosed this was going to be managed medically unless the LAD itself was ischemic. Because of the angiographic ambiguity therapeutic heparin was administered giving a therapeutic ACT and the guide catheter was placed in the left main artery followed by a Choice PT extra-support wire down the LAD. A nevus FFR catheter was advanced and adenosine was infused. The FFR index quickly dropped to 0.74 therefore the test was terminated. An additional Choice PT extra-support wire was placed into the first diagonal artery. A 2.5 x 12 mm resolute Richard stent was deployed at 20 mile predilated in the diagonal artery stenosis. A 3 mm x 30 mm resolute Richard stent was then deployed in the proximal and mid LAD and deployed at 16 imle. The first diagonal artery was then occluded and choice floppy wires were used to recanalize the initially dissected diagonal artery. A 2.25 x 26 mm resolute Richard stent was placed in the ostial proximal first diagonal artery. Additional ballooning was required distally but eventually an additional 2 mm x 30 mm resolute Sedgwick stent was then deployed at 16 mile thereby restoring JANUARY-3 flow down the first diagonal artery. The balloon was brought back and deployed at 22 mile to mesh the 2 stents and then pulled back further into the ostium. An additional 3.5 x 12 mm resolute Richard stent was deployed in the proximal LAD overlapping the proximal aspect of the first 3 mm stent. This was deployed at 20 mile. The balloon was advanced and deployed at 12 mile to mesh the 3 mm and 3.5 mm LAD stents together. JANUARY II flow was present in the diagonal artery and LAD at the beginning the procedure with JANUARY-3 flow being present after 800 mcg of intracoronary nitroglycerin. After achieving excellent angiographic results the guide cath was placed in the right coronary artery followed by a BMW wire for a 3.5 x 38 mm resolute Sedgwick stent was then deployed at 18 mile reducing the stenosis to 0%. At the end the procedure the apparatus was removed the sheath was removed and hemostasis was achieved using TR banding patient was transferred to the postop putting in stable condition ANGIOGRAPHIC RESULTS The left main artery Normal The left anterior descending artery Has a proximal 40% stenosis immediately proximal to the large first diagonal artery followed by an additional mid vessel 50% stenosis. A large first diagonal artery has an ostial 80% stenosis followed by a proximal eccentric 50% stenosis
--- NOTE | 2022-05-31 10:26 | SW/DCPLANNER ---
Addendum entered by Flora Cannon 05/31/22 10:30: *Patient also stated that she does have running water, electric and food at home. Original Note: I received a consult on this patient regarding PCS4. Patient resides at home only in [place] and is able to complete all ADLs. Patient stated that she has family that is very involved. Patient stated that she is able to transport herself. Patient did not have any further questions/needs at this time. I have provided patient with a Resource List to take home for any future needs/questions that may come up. Discharge date is unknown at this time.
[2022-05-31 14:08] LABS: CATHL Activated Clotting Time 391 SEC (74-125)
[2022-05-31 14:09] LABS: CATHL Activated Clotting Time > 400 SEC (74-125)
--- NOTE | 2022-05-31 14:25 | EXP.ACUTE.PN ---
Subjective *Date: 05/31/22 *Time: 14:25 Interval history: Patient did well overnight. Relatively symptom-free. Stable on room air. Cardiology seeing this morning, planning to take for left heart cath. Denies nausea, vomiting, headache, confusion. Medical Exam Vital signs and Labs for Last 24 Hours: Vital Signs Temp Pulse Pulse Pulse Resp BP BP 05/31/22 14:05 56 L 16 106/67 L 05/31/22 13:35 64 17 105/65 L 05/31/22 13:20 97.8 F 58 L 18 123/75 05/31/22 13:05 57 L 18 119/68 05/31/22 12:50 58 L 18 140/79 05/31/22 12:35 68 18 121/89 05/31/22 12:30 58 L 18 122/85 05/31/22 12:20 68 18 118/90 05/31/22 12:25 68 18 155/86 H 05/31/22 12:25 70 05/31/22 08:00 98.0 F 54 L 18 05/31/22 08:00 54 L 05/31/22 08:00 60 05/31/22 07:47 98.0 F 54 L 18 05/31/22 04:00 50 L 05/31/22 00:00 50 L 05/30/22 20:00 60 05/31/22 04:00 97.9 F 54 L 18 05/30/22 23:47 97.8 F 63 18 05/30/22 20:00 97.8 F 61 18 05/30/22 18:55 50 L 05/30/22 18:43 97.9 F 52 L 16 05/30/22 18:38 98.0 F 52 L 12 127/70 05/30/22 17:30 51 L 134/77 05/30/22 17:00 53 L 144/71 H 05/30/22 16:30 58 L 8 L 144/84 H 05/30/22 16:00 112/71 05/30/22 15:41 109 H 16 112/71 05/30/22 15:32 98.4 F 68 16 BP Pulse Ox 05/31/22 14:05 97 05/31/22 13:35 99 05/31/22 13:20 97 05/31/22 13:05 93 L 05/31/22 12:50 95 05/31/22 12:35 95 05/31/22 12:30 95 05/31/22 12:20 95 05/31/22 12:25 94 L 05/31/22 12:25 05/31/22 08:00 109/54 L 96 05/31/22 08:00 96 05/31/22 08:00 05/31/22 07:47 109/54 L 96 05/31/22 04:00 05/31/22 00:00 05/30/22 20:00 05/31/22 04:00 108/76 L 100 05/30/22 23:47 128/75 96 05/30/22 20:00 139/66 97 05/30/22 18:55 05/30/22 18:43 146/88 H 99 05/30/22 18:38 05/30/22 17:30 99 05/30/22 17:00 95 05/30/22 16:30 99 05/30/22 16:00 05/30/22 15:41 05/30/22 15:32 142/78 H 96 Intake and Output 05/30/22 05/31/22 05/31/22 23:59 07:59 15:59 Intake Total 400 / 400 Output Total 0 / 0 0 / 300 300 / 300 Balance 0 / 0 0 / 100 100 / 100 Intake: Intake, Other Amount 400 / 400 Output: Output, Urine Amount 0 / 0 0 / 300 300 / 300 Other: Intake, Other Source Saline Solution Number of Voids 1 Number of Unmeasured Voids 1 0 Weight 77.706 kg 78.216 kg Patient Weight 05/31/22 23:59 Weight 78.216 kg Laboratory Results - last 24 hr 05/30/22 15:35: WBC 10.3, RBC 5.05, Hgb 16.0, Hct 48.5 H, MCV 96.0, MCH 31.6 H, MCHC 32.9, RDW 13.6, Plt Count 281, MPV 8.8, Neut % (Auto) 60.5, Lymph % (Auto) 32.3, Isabela % (Auto) 4.2, Eos % (Auto) 1.7, Baso % (Auto) 1.3, Neut # (Auto) 6.2, Lymph # (Auto) 3.3, Isabela # (Auto) 0.4, Eos # (Auto) 0.2, Baso # (Auto) 0.1 05/30/22 15:35: Troponin I < 0.01 05/30/22 15:35: Sodium 138, Potassium 4.7, Chloride 105, Carbon Dioxide 22, Anion Gap 15.7 H, BUN 19 H, Creatinine 0.80, Estimated Creat Clear 69, Estimated GFR 72, Est GFR ( Amer) 87, Glucose 88, Calcium 9.1 05/30/22 15:35: D-Dimer 0.77 H 05/30/22 16:03: SARS-CoV-2 (PCR) Not detected, Influenza A Untype (PCR) Not detected, Influenza Type B (PCR) Not detected 05/30/22 18:56: Troponin I < 0.01 05/30/22 22:10: Troponin I < 0.01 05/31/22 05:34: WBC 5.5 D, RBC 4.60, Hgb 14.5, Hct 44.8, MCV 97.3, MCH 31.4 H, MCHC 32.3, RDW 13.5, Plt Count 223, MPV 8.7, Neut % (Auto) 35.4 L, Lymph % (Auto) 56.2 H, Isabela % (Auto) 4.8, Eos % (Auto) 2.0, Baso % (Auto) 1.6, Neut # (Auto) 1.9, Lymph # (Auto) 3.1, Isabela # (Auto) 0.3, Eos # (Auto) 0.1, Baso # (Auto) 0.1, Total Counted 100, Neutrophils % (Manual) 36 L, Lymphocytes % (Manual) 57 H, Monocytes % (Manual) 4, Eosinophils % (Manual) 2, Basophils % (Manual) 1.0, Platelet Estimate Normal, RBC Morphology Normal 05/31/22 05:34: Sodium 136, Potassium 3.8, Chloride
--- NOTE | 2022-05-31 17:29 | PC.NURSE ---
pt has remained cammie t/o most of shift, right radial cath site, radialband still in place, has complained of headache and was treated per MAR, no complaints of chest pain, SBP 85-123, HR 53-67, remains on room air with O2 sats 97-99%
[2022-05-31 19:40] LABS: Basophils # 0.1 K/mm3 (0-0.2); Basophils % 0.7 % (0.1-2.0); Eosinophils # 0.1 K/mm3 (0.0-0.4); Eosinophils % 1.3 % (0.1-12.0); Hemoglobin 13.1 g/dL (12.2-16.2); Lymphocytes # 2.2 K/mm3 (0.7-4.5); Lymphocytes % 28.3 % (10-50); Mean Corpuscular HGB Conc 32.7 g/dL (31.8-35.4); Mean Corpuscular Hemoglobin 31.5 pg (27.0-31.2); Mean Corpuscular Volume 96.2 fl (81-99); Mean Platelet Volume 9.1 fl (7.4-10.4); Monocytes # 0.4 K/mm3 (0.1-1.0); Monocytes % 5.4 % (1.7-9.3); Neutrophils # 4.9 K/mm3 (1.8-7.8); Neutrophils % 64.2 % (37.0-80.0); Platelet Count 228 K/mm3 (142-424); Red Blood Count 4.16 M/mm3 (4.20-5.40); Red Cell Distribution Width 13.7 % (11.5-17.5); White Blood Count 7.6 K/mm3 (4.8-10.8)
[2022-05-31 19:41] LABS: Chloride 107 mmol/L (98-107); Sodium 135 mmol/L (136-145)
[2022-05-31 19:44] LABS: Blood Urea Nitrogen 17 mg/dl (7-17); Creatinine Clearance Estimated 70 mL/min (50-200); Estimated Glomerular Filt Rate 84 ml/min (>60); GFR (African American) 102 ML/MIN (>60)
[2022-05-31 19:45] LABS: Calcium 8.5 mg/dl (8.4-10.2); Carbon Dioxide 24 mmol/L (22.0-30.0); Glucose 127 mg/dl (74-100)
[2022-06-01 04:00] VITALS: BP 124/68; PULSE 50; PULSE 54; RESP 18; TEMP 37.2; O2SAT 98; BMI 27.6
--- NOTE | 2022-06-01 04:21 | PC.NURSE ---
Pt is up ad lily and a0x4. Right wrist area is c/d/i after her cath procedure yesterday. Should go home today.
[2022-06-01 06:26] LABS: Basophils # 0.1 K/mm3 (0-0.2); Basophils % 0.7 % (0.1-2.0); Eosinophils # 0.1 K/mm3 (0.0-0.4); Eosinophils % 1.7 % (0.1-12.0); Hematocrit 40.7 % (37.0-47.0); Hemoglobin 12.9 g/dL (12.2-16.2); Lymphocytes % 37.3 % (10-50); Mean Corpuscular HGB Conc 31.7 g/dL (31.8-35.4); Mean Corpuscular Hemoglobin 31.2 pg (27.0-31.2); Mean Corpuscular Volume 98.3 fl (81-99); Monocytes # 0.4 K/mm3 (0.1-1.0); Monocytes % 4.6 % (1.7-9.3); Neutrophils # 4.5 K/mm3 (1.8-7.8); Neutrophils % 55.8 % (37.0-80.0); Platelet Count 222 K/mm3 (142-424); Red Blood Count 4.14 M/mm3 (4.20-5.40); Red Cell Distribution Width 13.6 % (11.5-17.5)
[2022-06-01 06:36] VITALS: O2SAT 95
[2022-06-01 06:51] LABS: Chloride 106 mmol/L (98-107)
[2022-06-01 06:52] LABS: Sodium 136 mmol/L (136-145)
[2022-06-01 06:55] LABS: Blood Urea Nitrogen 16 mg/dl (7-17); Calcium 8.5 mg/dl (8.4-10.2); Carbon Dioxide 23 mmol/L (22.0-30.0); Creatinine Clearance Estimated 70 mL/min (50-200); Estimated Glomerular Filt Rate 84 ml/min (>60); GFR (African American) 102 ML/MIN (>60); Glucose 88 mg/dl (74-100)
[2022-06-01 07:29] VITALS: BP 119/75; PULSE 61; RESP 17; TEMP 36.7; O2SAT 100
--- NOTE | 2022-06-01 07:40 | PC.NURSE ---
Prior documentation not done, went to clean up worklist, accidentally selected not done because of visitors. Should be not done due to prior shift
[2022-06-01 08:00] VITALS: PULSE 60
--- NOTE | 2022-06-01 10:06 | EXP.CARD.PN ---
Subjective Subjective Date: 06/01/22 Time: 08:00 Principal diagnosis: Unstable angina Interval history: Patient doing well this AM. Denies ongoing chest pain or shortness of breath. Did have some mild nausea prior to breakfast which resolved with eating. A.m. labs reviewed. 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 Dual antiplatelet therapy 2. LDL less than 55 to be achieved with high intensity statin 3. Avoidance of tobacco products 4. Maximize antianginal medications 5. Cardiac rehabilitation Exam Data for Last 24 hours Vital signs and Labs for Last 24 Hours: Temp Pulse Resp BP Pulse Ox 98.1 F 61 17 119/75 100 06/01/22 07:29 06/01/22 07:29 06/01/22 07:29 06/01/22 07:29 06/01/22 07:29 Laboratory Results - last 24 hr 05/31/22 12:09: Activated Clotting Time > 400 H* 05/31/22 12:58: Activated Clotting Time 391 H* 05/31/22 19:24: WBC 7.6 D, RBC 4.16 L, Hgb 13.1, Hct 40.0, MCV 96.2, MCH 31.5 H, MCHC 32.7, RDW 13.7, Plt Count 228, MPV 9.1, Neut % (Auto) 64.2, Lymph % (Auto) 28.3, Gem % (Auto) 5.4, Eos % (Auto) 1.3, Baso % (Auto) 0.7, Neut # (Auto) 4.9, Lymph # (Auto) 2.2, Gem # (Auto) 0.4, Eos # (Auto) 0.1, Baso # (Auto) 0.1 05/31/22 19:24: Sodium 135 L, Potassium 4.0, Chloride 107, Carbon Dioxide 24, Anion Gap 8.0, BUN 17, Creatinine 0.70, Estimated Creat Clear 70, Estimated GFR 84, Est GFR ( Amer) 102, Glucose 127 H D, Calcium 8.5 06/01/22 05:15: WBC 8.0, RBC 4.14 L, Hgb 12.9, Hct 40.7, MCV 98.3, MCH 31.2, MCHC 31.7 L, RDW 13.6, Plt Count 222, MPV 9.0, Neut % (Auto) 55.8, Lymph % (Auto) 37.3, Gem % (Auto) 4.6, Eos % (Auto) 1.7, Baso % (Auto) 0.7, Neut # (Auto) 4.5, Lymph # (Auto) 3.0, Gem # (Auto) 0.4, Eos # (Auto) 0.1, Baso # (Auto) 0.1 06/01/22 05:15: Sodium 136, Potassium 4.0, Chloride 106, Carbon Dioxide 23, Anion Gap 11.0, BUN 16, Creatinine 0.70, Estimated Creat Clear 70, Estimated GFR 84, Est GFR ( Amer) 102, Glucose 88 D, Calcium 8.5 I & O for Last 24 hours: Intake & Output 05/29/22 05/30/22 05/31/22 06/01/22 23:59 23:59 23:59 23:59 Intake Total 1000 / 1240 240 / 240 Output Total 0 / 0 300 / 300 0 / 0 Balance 0 / 0 700 / 940 240 / 240 Weight 171 lb 5 oz 171 lb 15.369 oz 172 lb Constitutional Constitutional: no acute distress *Routine Respiratory Exam Respiratory: Present CTA bilaterally and symmetric chest movement *Routine Cardiovascular Exam Cardiovascular: Present RRR, Normal S1 and Normal S2 *Routine Abdominal Exam Abdominal: Present soft and normoactive bowel sounds; Absent tenderness *Routine Extremities Exam Extremities: Present full ROM and normal capillary refill; Absent edema Comments: Right radial access site: Mild bruising and tenderness noted. No active bleeding or swelling present. *Routine Skin Exam Skin: Present intact, dry and warm Detailed Neck Exam: Thyroids Thyroid: Absent bruit Progress Note: A&P Assessment and plan (1) Unstable angina: Status: Acute (2) Emphysema lung: Status: Acute (3) Hypertension: Status: Acute (4) Hyperlipidemia: Status: Acute Assessment and Plan Assessment and Plan for All Diagnoses:: CAD/Unstable angina CCS 3 - Normal Stress and echo 2021 - Reported hx of disease on LHC 10 years ago which did not require intervention - Prelim echo EF normal?but official is pending - Patient will undergo LHC today due to unstable angina and hx of CAD. Discussed risks vs. benefits wit
--- NOTE | 2022-06-01 11:28 | EXP.DC.SUM ---
General Admission date:: 05/30/22 Discharge date: 06/01/22 HPI HPI HPI: Ms. Love is a 62-year-old female with a past medical history of Chronic Tobacco Use, COPD, HTN, Hyperlipidemia, Anxiety Disorder. [facility] after being seen by her PCP and Cardiology with complaints of chest pain on and off x 4 days associated with nausea, vomiting, mild shortness of air. The patient reports that the chest pain initially began on 05/27/22 and would come and go, she reports that the pain did not respond to Pepto Bismo, she reports that she proceeded to take Nitroglycerin that helped the pain after taking 3 tablets sublingual. She reports that she went to see her PCP today for a 2-month visit in the clinic for chronic care issues and mentioned the pain and he had her go to the Cardiology office. She was then sent to the ER for further evaluation and Cardiology consultation. In the ER, the patient underwent an EKG that showed NSR with rate [address] segment elevation or depression, QTC was 409. Initial Troponin was <0.01. Covid and Flu testing were negatuve, CTA of the chest showed Aortic Atherosclerosis with mild pulmonary edema and no Pulmonary Embolus. The patient will be admitted with initial impression: of Unstable Angina. Cardiology has been consulted, she will be monitored overnight on telemetry, NPO in the am, have echo, FLP in am and cardiology has been consulted. She has been placed on Heparin sub q. The plan of care was discussed with the patient at bedside on admission in the Medical Surgical unit. The patient verbalized understanding and agreement with the plan of care. Hospital Course Hospital Course Hospital Course: 62-year-old female with past medical history HTN, Hyperlipidemia, positive family history of CAD, chronic tobacco use presents with a 4-day history of mid-sternal chest pain associated with nausea, vomiting and shortness of air unrelieved with Pepto Bismo with improvement with Nitroglycerin.? Cardiology consulted, appreciate their recommendations.? Problems addressed as follows: -Coronary artery disease -Unstable Angina, resolved -Hyperlipidemia -Hypertension Presented with chest pain. Decision to admit patient. Heart Score 5, serial troponins less than 0.01 overnight. Cardiology consulted. Appreciate their recommendations and care. Patient taken for left heart cath on 05/31. Status post drug-eluting stent to LAD, RCA, and successful bifurcation reconstruction of the ostial proximal mid diagonal artery with 2 JOSE. Plan to continue dual antiplatelet therapy with Brilinta and aspirin. Will need close follow-up with cardiology after discharge. LDL 82 on fasting lipid panel during hospitalization. On Crestor at home 40 mg. Continue daily. Echo obtained during hospitalization, formal read still pending. EF normal on preliminary read. Continue metoprolol 50 mg p.o. twice daily, Norvasc 10 mg daily, lisinopril 40 mg daily. Monitored for 24 hours after heart cath. No further events overnight. Hemoglobin remained stable. Stable for discharge home. - Emphysema Continue Anoro, Albuterol prn. Refused NRT CV meds for discharge Aspirin 81 mg p.o. daily Brilinta 90 mg p.o. twice daily Metoprolol 50 mg p.o. twice daily Norvasc 10 mg p.o. daily Lisinopril 40 mg p.o. daily Rosuvastatin 40 mg p.o. daily Exam Data for Last 24 hours Vital signs and Labs for Last 24 Hours: Temp Pulse Resp BP Pulse Ox 98.1 F 61 17 119/75 100 06/01/22 07:29 06/01/22 07:29 06/01/22 07:29 06/01/22 07:29 06/01/22 07:29 Laboratory Results - last 24 hr 05/31/22 12:09: Activated Clotting Time > 400 H* 05/31/22 12:58: Activated Clotting Time 391 H* 05/31/22 19:24: WBC 7.6 D, RBC 4.16 L, Hgb 13.1, Hct 40.0, MCV 96.2, MCH 31.5 H, MCHC 32.7, RDW 13.7, Plt Count 228, MPV 9.1, Neut % (Auto) 64.2, Lymph % (Auto) 28.3, [place] % (Auto) 5.4, Eos % (Auto) 1.3, Baso % (Auto) 0.7, Neut
[2022-06-01 11:31] VITALS: BP 120/70; PULSE 63; RESP 18; TEMP 36.7; O2SAT 100
--- NOTE | 2022-06-01 12:40 | HMH.PHACL ---
[facility] Trim Technician Discharge Med Group Reservations Coordinator: Ioana Love has received discharge medication counseling on the following medications: ASPIRIN 81 MG DAILY BRILINTA 90 MG BID LISINOPRIL 20 MG DAILY METOPROLOL TARTRATE 50 MG BID CRESTOR 40 MG HS
--- NOTE | 2022-06-05 15:36 | CARE MANAGER ---
Called and spoke with Ms. Love regarding recent discharge. She reports that she is doing ok, and is aware of f/u appts. No concerns or complaints at time of call.
== END 2022-06-01 12:50 | disposition home or self-care (01) ==
LOC: ER 18:22 → 2ND 18:41
PROVIDERS: Internal Medicine; Admitting Provider Internal Medicine Adolescent Medicine; Emergency Provider Emergency Medicine; PCP Emergency Medicine; Visit Provider Internal Medicine Adolescent Medicine
DX: R07.9 Chest pain, unspecified (principal); E78.5 Hyperlipidemia, unspecified; I10 Essential (primary) hypertension; I25.110 Atherosclerotic heart disease of native coronary artery with unstable angina pectoris; Z20.822 Contact with and (suspected) exposure to COVID-19; Z79.899 Other long term (current) drug therapy; J43.9 Emphysema, unspecified
CPT/HCPCS: G0378; 36415; 71045; 71275; 80048; 80053; 80061; 83735; 84484; 85007; 85025; 85347; 85378; 92928; 92929; 93005; 93306; 93454; 93571; 94640; 99152; 99153; 99285; C1725; C1769; C1874; C1876; C9600; C9601; C9803; J0153; J1644; Q9967; U0003; U0005

== ENCOUNTER → 2022-05-30 23:00 | Outpatient (CLI) | payer MEDICARE, SELFPAY ==
[2022-05-30 19:22] LABS: Amphetamine/Metha Screen,Urine Negative ng/ml (<1000)
[2022-05-30 19:23] LABS: Barbiturates Screen,Urine Negative ng/ml (<200)
[2022-05-30 19:24] LABS: Benzodiazepines Screen,Urine Positive ng/ml (<200); Cannabinoid Screen,Urine Negative ng/ml (<50)
[2022-05-30 19:26] LABS: Cocaine Screen,Urine Negative ng/ml (<300)
[2022-05-30 19:27] LABS: Methadone Screen,Urine Negative ng/ml (<300); Opiate Screen,Urine Positive ng/ml (<300)
[2022-05-30 19:28] LABS: Phencyclidine Screen,Urine Negative ng/ml (<25)
== END ==
PROVIDERS: PCP Emergency Medicine; Visit Provider Emergency Medicine
DX: M47.812 Spondylosis without myelopathy or radiculopathy, cervical region (principal); Z02.83 Encounter for blood-alcohol and blood-drug test
CPT/HCPCS: 80305

== ENCOUNTER → 2022-06-25 14:00 | Outpatient (CLI) | payer MEDICARE, SELFPAY ==
[2022-06-25 14:57] LABS: Hematocrit 42.5 % (37.0-47.0); Hemoglobin 13.2 g/dL (12.2-16.2)
== END ==
PROVIDERS: PCP Emergency Medicine; Visit Provider Nurse Practitioner
DX: I25.10 Atherosclerotic heart disease of native coronary artery without angina pectoris (principal); K92.1 Melena; R10.9 Unspecified abdominal pain
CPT/HCPCS: 36415; 85014; 85018

== ENCOUNTER → 2022-09-26 15:35 | Outpatient (CLI) | payer MEDICARE, SELFPAY ==
[2022-09-26 19:40] LABS: Amphetamine/Metha Screen,Urine Negative ng/ml (<1000)
[2022-09-26 19:41] LABS: Barbiturates Screen,Urine Negative ng/ml (<200); Benzodiazepines Screen,Urine Positive ng/ml (<200)
[2022-09-26 19:42] LABS: Cannabinoid Screen,Urine Negative ng/ml (<50)
[2022-09-26 19:43] LABS: Cocaine Screen,Urine Negative ng/ml (<300); Methadone Screen,Urine Negative ng/ml (<300)
[2022-09-26 19:44] LABS: Opiate Screen,Urine Positive ng/ml (<300)
[2022-09-26 19:45] LABS: Phencyclidine Screen,Urine Negative ng/ml (<25)
== END ==
PROVIDERS: PCP Emergency Medicine; Visit Provider Emergency Medicine
DX: M47.812 Spondylosis without myelopathy or radiculopathy, cervical region (principal)
CPT/HCPCS: 80305

== ENCOUNTER → 2023-01-21 08:57 | Outpatient (CLI) | payer MEDICARE, SELFPAY ==
[2023-01-21 22:28] LABS: Amphetamine/Metha Screen,Urine Negative ng/ml (<1000)
[2023-01-21 22:29] LABS: Barbiturates Screen,Urine Negative ng/ml (<200); Benzodiazepines Screen,Urine Positive ng/ml (<200)
[2023-01-21 22:30] LABS: Cannabinoid Screen,Urine Positive ng/ml (<50); Cocaine Screen,Urine Negative ng/ml (<300)
[2023-01-21 22:31] LABS: Methadone Screen,Urine Negative ng/ml (<300)
[2023-01-21 22:32] LABS: Opiate Screen,Urine Positive ng/ml (<300); Phencyclidine Screen,Urine Negative ng/ml (<25)
== END ==
PROVIDERS: PCP Emergency Medicine; Visit Provider Emergency Medicine
DX: M47.812 Spondylosis without myelopathy or radiculopathy, cervical region (principal)
CPT/HCPCS: 80305

== ENCOUNTER 2023-04-04 19:12 | Outpatient (CLI) | payer MEDICARE, SELFPAY ==
[2023-04-04 20:23] LABS: Amphetamine/Metha Screen,Urine Negative ng/ml (<1000); Barbiturates Screen,Urine Negative ng/ml (<200); Benzodiazepines Screen,Urine Positive ng/ml (<200); Cannabinoid Screen,Urine Negative ng/ml (<50); Cocaine Screen,Urine Negative ng/ml (<300); Methadone Screen,Urine Negative ng/ml (<300); Opiate Screen,Urine Positive ng/ml (<300); Phencyclidine Screen,Urine Negative ng/ml (<25)
== END 2023-04-04 23:59 ==
LOC: LAB.DROPOF 19:13
PROVIDERS: PCP Internal Medicine; Visit Provider Internal Medicine
DX: Z79.899 Other long term (current) drug therapy (principal)
CPT/HCPCS: 80307

== ENCOUNTER 2023-05-14 19:29 | Outpatient (CLI) | payer MEDICARE, SELFPAY ==
[2023-05-14 20:10] LABS: 25-OH Vitamin D, Total 34.1 ng/mL (30-100)
== END 2023-05-14 23:59 ==
LOC: LAB.DROPOF 19:29
PROVIDERS: PCP Internal Medicine; Visit Provider Internal Medicine
DX: E55.9 Vitamin D deficiency, unspecified (principal)
CPT/HCPCS: 82306

== ENCOUNTER 2023-06-07 08:31 | Outpatient (CLI) | payer MEDICARE, SELFPAY ==
--- NOTE | 2023-06-07 08:31 | XR_ITS ---
FINAL REPORT CLINICAL HISTORY: osteoporosis COMPARISON: None FINDINGS: Using L1-4, the bone mineral density of the spine is 0.831 g/cm2, corresponding to T-score of -2.0, consistent with low bone density. Using the left hip, the bone mineral density of the femoral neck is 0.688 g/cm2, corresponding to a T-score of -2.1, consistent with low bone density. Using the right hip, the bone mineral density of the femoral neck is 0.747 g/cm2, corresponding to a T-score of -1.6, consistent with low bone density. FRAX not reported because patient being treated for osteoporosis. NOTE: T-score: Standard deviation compared with peak bone mass of young adult mean. *Following the recommendations of the International Society of Bone densitometry, classification of hip BMD is based on the lower of two T-scores; total hip or femoral neck. IMPRESSION: Diminished bone mineral density consistent with low bone density. Reviewed, Interpreted and Dictated by Aldair Serrato III, MD Transcribed by Jes Jaffe Authenticated and . [facility]
== END 2023-06-07 23:59 ==
LOC: RAD 08:31
PROVIDERS: PCP Internal Medicine; Visit Provider Internal Medicine
DX: M81.0 Age-related osteoporosis without current pathological fracture (principal)
CPT/HCPCS: 77080

== ENCOUNTER 2023-08-21 18:25 | Outpatient (CLI) | payer MEDICARE, SELFPAY ==
[2023-08-21 18:42] LABS: Basophils # 0.1 K/mm3 (0-0.2); Eosinophils # 0.2 K/mm3 (0.0-0.4); Eosinophils % 2.3 % (0.1-12.0); Hematocrit 41.9 % (37.0-47.0); Hemoglobin 13.9 g/dL (12.2-16.2); Lymphocytes # 2.2 K/mm3 (0.7-4.5); Lymphocytes % 34.2 % (10-50); Mean Corpuscular HGB Conc 33.2 g/dL (31.8-35.4); Mean Corpuscular Hemoglobin 31.6 pg (27.0-31.2); Mean Platelet Volume 9.4 fl (7.4-10.4); Monocytes # 0.4 K/mm3 (0.1-1.0); Monocytes % 6.1 % (1.7-9.3); Neutrophils # 3.6 K/mm3 (1.8-7.8); Neutrophils % 56.4 % (37.0-80.0); Platelet Count 223 K/mm3 (142-424); Red Blood Count 4.41 M/mm3 (4.20-5.40); Red Cell Distribution Width 14.4 % (11.5-17.5); White Blood Count 6.4 K/mm3 (4.8-10.8)
[2023-08-21 18:59] LABS: Alanine Aminotransferase 27 U/L (12-78); Albumin/Globulin Ratio 1.3 (1.1-1.8); Alkaline Phosphatase 104 U/L (38-126); Anion Gap 14.2 mEq/L (5-15); Aspartate Amino Transferase 32 U/L (14-36); Bilirubin,Total 0.4 mg/dl (0.2-1.3); Blood Urea Nitrogen 15 mg/dl (7-17); Calcium 9.4 mg/dl (8.4-10.2); Carbon Dioxide 27 mmol/L (22.0-30.0); Chloride 103 mmol/L (98-107); Chol/HDL Ratio 5.5 (1-3.5); Cholesterol 241 mg/dl (140-200); Estimated Glomerular Filt Rate 72 ml/min (>60); GFR (African American) 87 ML/MIN (>60); Globulin 3.2 g/dL (1.3-3.2); Glucose 100 mg/dl (74-100); HDL Cholesterol 44 mg/dl (40-60); Potassium 4.2 mmoL/L (3.5-5.1); Sodium 140 mmol/L (136-145); Total Protein,Serum 7.2 g/dl (6.3-8.2); Triglycerides 137 mg/dl (30-150); VLDL Cholesterol 27 mg/dL (0-40)
[2023-08-21 19:11] LABS: Direct LDL Cholesterol 158.02 mg/dL (100-129)
[2023-08-21 19:21] LABS: 25-OH Vitamin D, Total 23.3 ng/mL (30-100)
[2023-08-21 19:33] LABS: Thyroid Stimulating Hormone 3.57 uIU/mL (0.465-4.68)
[2023-08-21 19:52] LABS: Vitamin B12 253 pg/mL (239-931)
[2023-08-30 12:12] LABS: HBsAg Screen Negative (Negative); HCV Ab Reactive (Non Reactive); Hep A Ab, IGM Negative (Negative); Hep B Core Ab, IgM Negative (Negative)
== END 2023-08-21 23:59 | disposition home or self-care (01) ==
LOC: LAB.DROPOF 18:26
PROVIDERS: PCP Internal Medicine; Visit Provider Internal Medicine
DX: I10 Essential (primary) hypertension (principal); E03.9 Hypothyroidism, unspecified; E55.9 Vitamin D deficiency, unspecified; K21.9 Gastro-esophageal reflux disease without esophagitis; B15.9 Hepatitis A without hepatic coma; R53.83 Other fatigue; Z68.28 Body mass index [BMI] 28.0-28.9, adult; F17.210 Nicotine dependence, cigarettes, uncomplicated
CPT/HCPCS: 80053; 80061; 80074; 82306; 82607; 84443; 85025

== ENCOUNTER 2023-10-23 16:09 | Emergency (ER) | payer MEDICARE, SELFPAY ==
[2023-10-23] VITALS (7 sets, daily range): BP systolic 122–175; BP diastolic 63–96; PULSE 53–76; RESP 16–18; TEMP 36.5–36.8; O2SAT 94–100; BMI 28.4
--- NOTE | 2023-10-23 16:32 | CT_ITS ---
PROCEDURE INFORMATION: Exam: CT Head Without Contrast Exam date and time: 10/23/2023 5:36 PM Age: 63 years old Clinical indication: Injury or trauma; Fall; Blunt trauma (contusions or hematomas); Additional info: Fall head injury TECHNIQUE: Imaging protocol: Computed tomography of the head without contrast. Radiation optimization: All CT scans at this facility use at least one of these dose optimization techniques: automated exposure control; mA and/or kV adjustment per patient size (includes targeted exams where dose is matched to clinical indication); or iterative reconstruction. COMPARISON: [facility] MR head/brain wo con 04/28/2018 12:59 PM FINDINGS: Brain: Mild volume loss. No acute intracranial hemorrhage, midline shift or intracranial mass effect. Cerebral ventricles: No obstructive hydrocephalus. Paranasal sinuses: Visualized sinuses are unremarkable. No fluid levels. Mastoid air cells: Visualized mastoid air cells are well aerated. Bones: Unremarkable. No acute fracture. Soft tissues: Unremarkable. IMPRESSION: No acute intracranial abnormality.
--- NOTE | 2023-10-23 16:32 | CT_ITS ---
PROCEDURE INFORMATION: Exam: CT Cervical Spine Without Contrast Exam date and time: 10/23/2023 5:36 PM Age: 63 years old Clinical indication: Injury or trauma; Fall; Blunt trauma; Additional info: Fall head injury TECHNIQUE: Imaging protocol: Computed tomography of the cervical spine without contrast. Radiation optimization: All CT scans at this facility use at least one of these dose optimization techniques: automated exposure control; mA and/or kV adjustment per patient size (includes targeted exams where dose is matched to clinical indication); or iterative reconstruction. COMPARISON: [facility] MR cervical spine wo con 05/19/2018 1:07 PM FINDINGS: Limitations: Limited by artifact arising from metallic dental hardware/dental amalgam. Bones: Trace retrolisthesis of C3 on C4. Vertebral body heights are preserved. Nonspecific straightening. [id number] degenerative change about the dens. Mild prevertebral osteophytosis. Mild for age facet joint degenerative change. No acute cervical spine fracture. No definite high-grade central canal stenosis within limitations of technique. Scattered cervical foraminal stenoses. Lungs: Lung apices are normal. Pleural spaces: No visible pneumothorax. Vasculature: Vascular calcification. Soft tissues: Unremarkable. IMPRESSION: No acute osseous abnormality.
--- NOTE | 2023-10-23 16:39 | ED_ITS ---
Discharge Plan Disposition Patient Disposition: Home, Self-Care Condition: Good Prescriptions Prescriptions: New ondansetron HCl 4 mg tablet 4 mg PO Q8H PRN (Reason: nausea and vomiting) 4 Days Qty: 12 0RF No Action ranolazine 500 mg tablet extended release 12 hr 500 mg PO BID Patient Comments: Take 1 tablet by mouth 2 (Two) Times a Day. diclofenac sodium 3 % gel 1 applic topical BID Qty: 100 3RF aspirin [Adult Low Dose Aspirin] 81 mg tablet,delayed release (DR/EC) 81 mg PO DAILY Qty: 90 3RF rosuvastatin 40 mg tablet 40 mg PO HS Qty: 90 3RF nitroglycerin [Nitrostat] 0.4 mg tablet, sublingual 0.4 mg SUBLINGUAL Q5-15M PRN (Reason: chest pain) Qty: 30 1RF Rx Instructions: until response; do not exceed 3 doses per episode sucralfate 1 gram tablet See Rx Instructions .ROUTE .COMPLEX Qty: 60 2RF Dose Instruction: DISSOLVE ONE TABLET IN SMALL AMOUNT OF WATER AND DRINK TWICE DAILY Rx Instructions: DISSOLVE ONE TABLET IN SMALL AMOUNT OF WATER AND DRINK TWICE DAILY estradiol 1 mg tablet See Rx Instructions .ROUTE .COMPLEX Qty: 60 0RF Dose Instruction: TAKE ONE TABLET BY MOUTH EVERY DAY Rx Instructions: TAKE ONE TABLET BY MOUTH EVERY DAY amlodipine 10 mg tablet See Rx Instructions .ROUTE .COMPLEX Qty: 30 3RF Dose Instruction: TAKE 1 TABLET BY MOUTH DAILY FOR HIGH BLOOD PRESSURE Rx Instructions: TAKE 1 TABLET BY MOUTH DAILY FOR HIGH BLOOD PRESSURE pantoprazole 40 mg tablet,delayed release (DR/EC) 40 mg PO DAILY Qty: 90 0RF Rx Instructions: TAKE ONE TABLET BY MOUTH DAILY clopidogrel 75 mg tablet See Rx Instructions .ROUTE .COMPLEX Qty: 30 5RF Dose Instruction: TAKE 1 TABLET BY MOUTH DAILY Rx Instructions: TAKE 1 TABLET BY MOUTH DAILY oxycodone 10 mg tablet 10 mg PO Q6H MDD No>2 per day PRN (Reason: pain) 30 Days Qty: 60 0RF budesonide-formoterol [Symbicort] 80-4.5 mcg/actuation HFA aerosol inhaler 1 inh inhalation BID Qty: 10.2 2RF methadone 5 mg tablet 5 mg PO TID 30 Days Qty: 120 0RF Rx Instructions: TID dosing, 1 1/2 tablets (7.5 mg) - 1 tablet (5 mg) - 1 1/2 tablets (7.5 mg) lisinopril-hydrochlorothiazide 20-25 mg tablet 1 tab PO QAM Qty: 90 3RF cholecalciferol (vitamin D3) 125 mcg (5,000 unit) capsule 125 mcg PO DAILY Qty: 30 2RF alendronate 10 mg tablet 10 mg PO DAILY 30 Days Qty: 30 2RF diazepam 10 mg tablet 5 mg PO TID 30 Days Qty: 45 0RF methadone 5 mg tablet 5 mg PO TID 30 Days Qty: 120 0RF Rx Instructions: TID dosing, 1 1/2 tablets (7.5 mg) - 1 tablet (5 mg) - 1 1/2 tablets (7.5 mg) oxycodone 10 mg tablet 10 mg PO Q6H MDD No>2 per day PRN (Reason: pain) 30 Days Qty: 60 0RF buspirone 10 mg tablet 10 mg PO TID Qty: 90 3RF metoprolol succinate 50 mg tablet extended release 24 hr See Rx Instructions .ROUTE .COMPLEX Qty: 180 3RF Dose Instruction: TAKE 1 TABLET BY MOUTH TWICE DAILY FOR HIGH BLOOD PRESSURE Rx Instructions: TAKE 1 TABLET BY MOUTH TWICE DAILY FOR HIGH BLOOD PRESSURE bupropion HCl 300 mg tablet extended release 24 hr 300 mg PO DAILY valacyclovir 500 mg tablet 500 mg PO DAILY Rx Instructions: TAKE ONE TABLET BY MOUTH DAILY albuterol sulfate 90 mcg/actuation HFA aerosol inhaler 2 puff inhalation Q4-6H PRN (Reason: Wheezing) Rx Instructions: inhale 2 PUFFS every 4-6 Hours As Needed for shortness of breath or wheezing Referrals Follow up/Referrals: Roby Paredes DO [Primary Care Provider] - See instructions Activity Restrictions/Add. Instructions Additional Instructions/Restrictions: You were evaluated in the emergency department today and diagnosed with a concussion. Please take Tylenol and ibuprofen at home every 4-6 hours as needed for pain. 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 See attached concussion handout. Follow-up closely with your primary care provider. Return to the emergency department for new or worsening symptoms. Clinical Impressions Clinical Impression: Concussion Instructions Patient Instructions: DI for Concussion, DI for Closed Head Injury Print Language Print Language: Pashto Discharge ED Provider: Octavia Zafar General Adult HPI General Chief complaint: Head Injury Stated complaint: sent by Rola greenfield 10/20 Time Seen by Provider: 10/23/23 16:26 History of Present Illness HPI narrative: This patient is a 63-year-old female with a history of hypertension, hyperlipidemia, CAD status post stenting on dual antiplatelet therapy, and anxiety presenting to the emergency department for evaluation with concern for head injury. Patient fell 10/21/2023 around 230/3 AM and struck her face on a door frame. She hit the right baptism and did lose consciousness. She has some bruising to her left forearm where she tried to get herself, but no other significant injuries noted. She has full motion of her left arm. Since the fall with head injury, she has had headaches, felt off balance, had subjective intermittent vision and hearing deficits, and has had nausea. She was evaluated by her primary care provider today who who was concerned given she did not seek evaluation after the head injury and sent her in for further evaluation and management. I did have an interactive discussion with him and he expressed his concern to me for head trauma. No other concerns or complaints noted at this time. Related Data Home Medications ?Medication ?Instructions ?Recorded ?Confirmed albuterol sulfate 90 mcg/actuation 2 puff inhalation Q4-6H PRN 05/30/22 10/23/23 aerosol inhaler Wheezing valacyclovir 500 mg tablet 500 mg PO DAILY herpes 05/30/22 10/23/23 ranolazine 500 mg tablet,extended 500 mg PO BID 01/21/23 10/23/23 release,12 hr bupropion HCl 300 mg 24 hr tablet, 300 mg PO DAILY 10/08/23 10/23/23 extended release Previous Rx's ?Medication ?Instructions ?Recorded aspirin 81 mg tablet,delayed 81 mg PO DAILY Heart disease #90 06/25/22 release (Adult Low Dose Aspirin) tabs rosuvastatin 40 mg tablet 40 mg PO HS Cholesterol #90 tabs 06/25/22 nitroglycerin 0.4 mg sublingual 0.4 mg sublingual Q5-15M PRN chest 09/12/22 tablet (Nitrostat) pain #30 tabs sucralfate 1 gram tablet See Rx Instructions .Route 01/31/23 .COMPLEX #60 tabs estradiol 1 mg tablet See Rx Instructions .Route 02/06/23 .COMPLEX #60 tabs diclofenac sodium 3 % topical gel 1 applic topical BID #100 grams 05/15/23 amlodipine 10 mg tablet See Rx Instructions .Route 06/10/23 .COMPLEX #30 tabs pantoprazole 40 mg tablet,delayed 40 mg PO DAILY acid reflux #90 tabs 06/12/23 release clopidogrel 75 mg tablet See Rx Instructions .Route 07/12/23 .COMPLEX #30 tabs budesonide-formoterol HFA 80 1 inh inhalation BID #10.2 grams 07/30/23 mcg-4.5 mcg/actuation aerosol inhaler (Symbicort) oxycodone 10 mg tablet 10 mg PO Q6H PRN pain 30 days #60 07/30/23 tabs methadone 5 mg tablet 5 mg PO TID Chronic pain 30 days 08/12/23 #120 tabs lisinopril 20 1 tab PO QAM BP #90 tabs 08/16/23 mg-hydrochlorothiazide 25 mg tablet alendronate 10 mg tablet 10 mg PO DAILY 30 days #30 tabs 08/28/23 cholecalciferol (vitamin D3) 125 125 mcg PO DAILY #30 caps 08/28/23 mcg (5,000 unit) capsule diazepam 10 mg tablet 5 mg (1/2 x 10 mg) PO TID anxiety 10/01/23 30 days #45 tabs methadone 5 mg tablet 5 mg PO TID Chronic pain 30 days 10/01/23 #120 tabs oxycodone 10 mg tablet 10 mg PO Q6H PRN pain 30 days #60 10/01/23 tabs buspirone 10 mg tablet 10 mg PO TID #90 tabs 10/02/23 metoprolol succinate 50 mg See Rx Instructions .Route 10/07/23 tablet,extended release 24 hr .COMPLEX #180 tabs ondansetron HCl 4 mg tablet 4 mg PO Q8H PRN nausea and 10/23/23 vomiting 4 days #12 tabs Allergies Allergy/AdvReac Type Severity Reaction Status Date / Time No Known Allergies Allergy Verified 10/23/23 15:27 [facility] Disclaimer: The information contained in this section may have been updated after the patient was seen, as this information can be updated by other users. Medical History Posttraumatic stress disorder Stomach ache Black stool Coronary artery disease Herpes Asthma Depression Anxiety GERD (gastroesophageal reflux disease) DDD (degenerative disc disease) Cervical stenosis of spinal canal Surgical History Hx of cholecystectomy H/O bilateral mastectomy Family History Other Cancer Heart attack Social History Smoking Status: Light tobacco smoker tobacco type: cigarettes packs per day: 1 alcohol intake: never substance use type: former substance user current occupational status: disabled Travel in the last 8 weeks: None household members: none housing: apartment ROS Obtained: Yes All systems reviewed & no additional complaints except as documented Physical Exam General General appearance: alert and in no apparent distress Head Head exam: normocephalic and other (Bruising to the right baptism) Eye Eye exam: Present normal appearance, PERRL and EOMI ENT ENT exam: Present normal exam, normal oropharynx, mucous membranes moist and normal external ear exam Neck Neck exam: Present normal inspection, full ROM and trachea midline; Absent tenderness Chest Chest inspection: Present normal inspection and symmetric chest wall rise; Absent tenderness Respiratory Respiratory exam: Present normal lung sounds bilaterally; Absent respiratory distress, wheezes, stridor or accessory muscle use Cardiovascular Cardiovascular exam: Present regular rate and normal rhythm Abdominal Exam Abdominal exam: Present soft; Absent distention, tenderness or guarding Extremities Exam Extremities exam: Present normal inspection, full ROM and normal capillary refill; Absent tenderness or edema Back Exam Back exam: Present normal inspection and full ROM; Absent tenderness Neurological Exam Neurological exam: Present alert, oriented X3, CN II-XII intact and normal gait; Absent motor sensory deficit Psychiatric Psychiatric exam: Present normal affect and normal mood Skin Skin exam: Present warm and dry Medical Decision Making Medical Records Medical records reviewed: Yes I reviewed the patient's medical records. Kei Inquiry Pt receiving controlled substance: No Vital Signs: 10/23/23 16:11 10/23/23 16:30 10/23/23 17:00 Temperature 97.7 F Temperature Source Oral Pulse Rate 72 70 Pulse Rate [Right] 76 Respiratory Rate 18 18 Blood Pressure 150/79 H 137/96 H Blood Pressure [Right Arm] 175/90 H Blood Pressure Mean 120 116 Blood Pressure Mean [Right Arm] 118 Blood Pressure Source Blood Pressure Source [Right Arm] Automatic Cuff Blood Pressure Position 02 Sat by Pulse Oximetry 97 97 96 Oxygen Delivery Method Room Air 10/23/23 18:01 10/23/23 18:31 10/23/23 19:19 Temperature Temperature Source Pulse Rate 59 L 57 L 58 L Pulse Rate [Right] Respiratory Rate 18 Blood Pressure 144/67 H 122/63 143/73 H Blood Pressure [Right Arm] Blood Pressure Mean 94 Blood Pressure Mean [Right Arm] Blood Pressure Source Blood Pressure Source [Right Arm] Blood Pressure Position 02 Sat by Pulse Oximetry 95 94 L 99 Oxygen Delivery Method 10/23/23 19:23 Temperature 98.2 F Temperature Source Oral Pulse Rate 53 L Pulse Rate [Right] Respiratory Rate 16 Blood Pressure 143/73 H Blood Pressure [Right Arm] Blood Pressure Mean Blood Pressure Mean [Right Arm] Blood Pressure Source Automatic Cuff Blood Pressure Source [Right Arm] Blood Pressure Position Supine 02 Sat by Pulse Oximetry Oxygen Delivery Method Room Air Lab Data Lab results reviewed: Yes I reviewed the patient's lab results. Lab Results 10/23/23 17:00: WBC 6.1, RBC 4.48, Hgb 14.3, Hct 44.0, MCV 98.3, MCH 32.0 H, MCHC 32.6, RDW 13.8, Plt Count 200, MPV 9.1, Neut % (Auto) 61.4, Lymph % (Auto) 31.1, Bowman % (Auto) 4.1, Eos % (Auto) 2.7, Baso % (Auto) 0.8, Neut # (Auto) 3.7, Lymph # (Auto) 1.9, Bowman # (Auto) 0.3, Eos # (Auto) 0.2, Baso # (Auto) 0.1, PT 10.2, INR 0.90, APTT 26.1, Sodium 139, Potassium 4.0, Chloride 110 H, Carbon Dioxide 25, Anion Gap 8.0, BUN 15, Creatinine 0.80, Estimated GFR 72, Est GFR ( Amer) 87, Glucose 88, Calcium 8.7, Total Bilirubin 0.4, AST 35, ALT 20, Alkaline Phosphatase 77, Total Protein 7.3, Albumin 3.7, Globulin 3.6 H, A lbumin/Globulin Ratio 1.0 L 10/23/23 17:00 10/23/23 17:00 Orders (Tests/Meds): ED MEDICATIONS Discontinued Medications Generic Name Dose Route Start Last Admin Trade Name Cristobalq PRN Reason Stop Dose Admin Acetaminophen 1,000 mg 10/23/23 16:32 10/23/23 17:01 Acetaminophen 1,000mg/100ml Vial IV 10/23/23 16:33 1,000 mg ONCE ONE Administration Lactated Ringer's 1,000 mls @ 999 mls/hr 10/23/23 16:32 10/23/23 17:01 Lactated Ringer's 1000 Ml Bag IV 10/23/23 17:32 999 mls/hr .Q1H1M ONE Administration Ketorolac Tromethamine 15 mg 10/23/23 18:09 10/23/23 18:38 Ketorolac 30mg/Ml Vial IV 10/23/23 18:10 15 mg ONCE ONE Administration Metoclopramide HCl 5 mg 10/23/23 16:32 10/23/23 17:01 Metoclopramide Hcl 10mg/2ml Vial IVP 10/23/23 16:33 5 mg ONCE ONE Administration ORDERS Category Date Time Status CT cervical spine wo con Stat Cat Scan 10/23/23 16:[address] head/brain wo con Stat Cat Scan 10/23/23 16:32 Completed Complete Blood Count Auto Diff Stat Lab 10/23/23 17:00 Completed Comprehensive Metabolic Panel Stat Lab 10/23/23 17:00 Completed PT INR [Prothrombin Time INR] Stat Lab 10/23/23 17:00 Completed PTT [Activated Partial Thrombo Time] Stat Lab 10/23/23 17:00 Completed Medical Decision Narrative: In summary, this patient is a 63-year-old female presenting to the Emergency Department for evaluation of persistent headache, subjective visual and hearing disturbances, and nausea since a head injury 10/21/2023. Differential diagnoses considered include but are not limited to subdural hematoma, intracranial hemorrhage, concussion, postconcussive syndrome. Ruling out the most morbid conditions drove assessment. It should be noted patient's history includes CAD on dual antiplatelet therapy which may or may not be at goal therapy. This complicates all aspects of care by increasing patient's risk for morbidity. On exam, the patient is well-appearing sitting upright in bed in no acute distress. Vitals are reassuring on cardiac telemetry. She has no focal neurologic deficits. Workup included CT head, CT C-spine, and basic lab evaluation to evaluate for significant coagulopathy. She was given a bolus of IV fluids as well as IV acetaminophen and Reglan for symptomatic improvement. I independently interpreted CT scan prior to the radiologist read and noted no large intracranial hemorrhage or space-occupying lesion. Please see their read for final interpretation. Labs were obtained that demonstrated no acutely concerning abnormalities. On reassessment, patient had great improvement after administration of as above. She was given IV Toradol for further symptomatic improvement since she has no intracranial hemorrhage. Ultimately, I feel we have excluded life-threatening pathology and that the patient is appropriate for discharge home. She was given instructions for concussion management and close outpatient follow-up. Strict return precautions were given. Critical Care Critical Care Time Critical Care Time: No
[2023-10-23] MEDS: ACETAMINOPHEN 1,000MG/100ML VIAL 1000 MG IV (17:01)
[2023-10-23] MEDS: LACTATED RINGERS 1000ML 1,000 ML 999 ML IV (17:01)
[2023-10-23] MEDS: METOCLOPRAMIDE HCL 10MG/2ML VIAL 5 MG IVP (17:01)
[2023-10-23 17:07] LABS: Basophils # 0.1 K/mm3 (0-0.2); Basophils % 0.8 % (0.1-2.0); Eosinophils # 0.2 K/mm3 (0.0-0.4); Eosinophils % 2.7 % (0.1-12.0); Hemoglobin 14.3 g/dL (12.2-16.2); Lymphocytes # 1.9 K/mm3 (0.7-4.5); Lymphocytes % 31.1 % (10-50); Mean Corpuscular HGB Conc 32.6 g/dL (31.8-35.4); Mean Corpuscular Volume 98.3 fl (81-99); Mean Platelet Volume 9.1 fl (7.4-10.4); Monocytes # 0.3 K/mm3 (0.1-1.0); Monocytes % 4.1 % (1.7-9.3); Neutrophils # 3.7 K/mm3 (1.8-7.8); Neutrophils % 61.4 % (37.0-80.0); Platelet Count 200 K/mm3 (142-424); Red Blood Count 4.48 M/mm3 (4.20-5.40); Red Cell Distribution Width 13.8 % (11.5-17.5); White Blood Count 6.1 K/mm3 (4.8-10.8)
[2023-10-23 17:11] LABS: Alanine Aminotransferase 20 U/L (12-78); Albumin Level 3.7 g/dl (3.5-5.0); Alkaline Phosphatase 77 U/L (38-126); Aspartate Amino Transferase 35 U/L (14-36); Bilirubin,Total 0.4 mg/dl (0.2-1.3); Blood Urea Nitrogen 15 mg/dl (7-17); Calcium 8.7 mg/dl (8.4-10.2); Carbon Dioxide 25 mmol/L (22.0-30.0); Chloride 110 mmol/L (98-107); Estimated Glomerular Filt Rate 72 ml/min (>60); GFR (African American) 87 ML/MIN (>60); Globulin 3.6 g/dL (1.3-3.2); Glucose 88 mg/dl (74-100); Sodium 139 mmol/L (136-145); Total Protein,Serum 7.3 g/dl (6.3-8.2)
[2023-10-23 17:18] LABS: Activated Partial Thrombo Time 26.1 seconds (22.8-30.6); Prothrombin Time 10.2 seconds (10.1-12.5)
--- NOTE | 2023-10-23 17:38 | PC.NURSE ---
PT RETURNED FROM RADIOLOGY
[2023-10-23] MEDS: KETOROLAC 30MG/ML VIAL 15 MG IV (18:38)
== END 2023-10-23 19:25 | disposition home or self-care (01) ==
PROVIDERS: Emergency Provider Emergency Medicine; PCP Internal Medicine
DX: S06.0X0A Concussion without loss of consciousness, initial encounter (principal); R11.0 Nausea; R42 Dizziness and giddiness; R51.9 Headache, unspecified; F17.210 Nicotine dependence, cigarettes, uncomplicated; I11.9 Hypertensive heart disease without heart failure; I25.10 Atherosclerotic heart disease of native coronary artery without angina pectoris; K21.9 Gastro-esophageal reflux disease without esophagitis; E78.5 Hyperlipidemia, unspecified; W19.XXXA Unspecified fall, initial encounter
CPT/HCPCS: 70450; 72125; 80053; 85025; 85610; 85730; 96361; 96374; 96375; 99285; J0131; J1885; J2765; J7120

== ENCOUNTER 2023-11-21 15:30 | Outpatient (CLI) | payer MEDICARE, SELFPAY ==
[2023-11-21 19:59] LABS: Microalbumin/Creatinine Ratio 6.5
[2023-11-21 20:15] LABS: Creatinine,Urine Random 211 mg/dL (Not Estab.)
== END 2023-11-21 23:59 | disposition home or self-care (01) ==
LOC: LAB.DROPOF 11-22 11:18
PROVIDERS: PCP Family Medicine; Visit Provider Family Medicine
DX: E11.9 Type 2 diabetes mellitus without complications (principal); N39.0 Urinary tract infection, site not specified; R33.9 Retention of urine, unspecified
CPT/HCPCS: 82043; 82570

== ENCOUNTER 2023-11-28 15:41 | Outpatient (CLI) | payer MEDICARE, SELFPAY ==
--- NOTE | 2023-11-28 15:41 | US_ITS ---
PROCEDURE INFORMATION: Exam: US Pelvis Limited, Bladder Exam date and time: 11/28/2023 3:53 PM Age: 63 years old Clinical indication: Retention of urine; Additional info: Unable to empty bladder TECHNIQUE: Imaging protocol: Real-time pelvic ultrasound (non-obstetric) with image documentation. Exam focused on the urinary bladder. COMPARISON: CT ANGIO CHEST PE PROTOCOL 05/30/2022 5:43 PM FINDINGS: Urinary bladder: Bladder is unremarkable. Prevoid volume of approximately 70 cc. Both ureteric jets visualized. Small postvoid residual volume of 25 cc. Bladder pre-void volume (cc): 70 Bladder post-void residual volume (cc): 25 Intraperitoneal space: No free fluid in the pelvis. IMPRESSION: Bladder is unremarkable. Prevoid volume of approximately 70 cc. Both ureteric jets visualized. Small postvoid residual volume of 25 cc.
== END 2023-11-28 23:59 | disposition home or self-care (01) ==
LOC: RAD 15:41
PROVIDERS: PCP Family Medicine; Visit Provider Family Medicine
DX: R33.9 Retention of urine, unspecified (principal); R30.9 Painful micturition, unspecified
CPT/HCPCS: 76857

== ENCOUNTER 2024-03-03 11:33 | Emergency (ER) | payer MEDICARE, SELFPAY ==
[2024-03-03 11:34] VITALS: BMI 31.4
--- NOTE | 2024-03-03 11:34 | XR_ITS ---
FINAL REPORT CLINICAL HISTORY: Chest Pain, smoker x 40+ yrs COMPARISON: 05/30/2022 FINDINGS: A single portable view of the chest was obtained. The heart size and pulmonary vascularity are within normal limits. The mediastinum is within normal limits. No acute pulmonary abnormality is identified. The bony thorax is intact. IMPRESSION: No active cardiopulmonary disease. Reviewed, Interpreted and Dictated by Aldair Serrato III, MD Transcribed by Jyoti Pollard Authenticated and . [facility]
--- NOTE | 2024-03-03 11:34 | ECG_ITS ---
APPROVED REPORT Exam: Resting ECG HR:53 bpm ECG Measurements Heart Rate 53 AXES WA 160 P 50 QRSd 93 QRS 42 QT 419 T 63 QTc 403 Conclusion SINUS BRADYCARDIA BORDERLINE ECG Electronically signed by : OLGA DANIELLE, 03/03/2024 16:10:19
[2024-03-03 11:43] VITALS: BP 132/82; PULSE 62; RESP 16; TEMP 36.4; O2SAT 96; BMI 31.4
[2024-03-03 11:49] LABS: Basophils # 0.1 K/mm3 (0-0.2); Eosinophils # 0.2 K/mm3 (0.0-0.4); Eosinophils % 2.5 % (0.1-12.0); Hematocrit 44.2 % (37.0-47.0); Hemoglobin 14.5 g/dL (12.2-16.2); Lymphocytes # 2.4 K/mm3 (0.7-4.5); Lymphocytes % 36.8 % (10-50); Mean Corpuscular HGB Conc 32.8 g/dL (31.8-35.4); Mean Corpuscular Hemoglobin 31.3 pg (27.0-31.2); Mean Corpuscular Volume 95.4 fl (81-99); Mean Platelet Volume 8.9 fl (7.4-10.4); Monocytes # 0.4 K/mm3 (0.1-1.0); Neutrophils # 3.4 K/mm3 (1.8-7.8); Neutrophils % 53.6 % (37.0-80.0); Platelet Count 213 K/mm3 (142-424); Red Blood Count 4.63 M/mm3 (4.20-5.40); Red Cell Distribution Width 13.8 % (11.5-17.5); White Blood Count 6.4 K/mm3 (4.8-10.8)
--- NOTE | 2024-03-03 12:13 | ED_ITS ---
Discharge Plan Disposition Patient Disposition: Home, Self-Care Condition: Good Prescriptions Prescriptions: No Action ranolazine 500 mg tablet extended release 12 hr 500 mg PO BID Patient Comments: Take 1 tablet by mouth 2 (Two) Times a Day. diclofenac sodium 3 % gel 1 applic topical BID Qty: 100 3RF albuterol sulfate 90 mcg/actuation HFA aerosol inhaler 2 puff inhalation Q4-6H PRN (Reason: Wheezing) Qty: 8.5 0RF Rx Instructions: inhale 2 PUFFS every 4-6 Hours As Needed for shortness of breath or wheezing aspirin [Adult Low Dose Aspirin] 81 mg tablet,delayed release (DR/EC) 81 mg PO DAILY Qty: 90 3RF rosuvastatin 40 mg tablet 40 mg PO HS Qty: 90 3RF budesonide-formoterol [Symbicort] 80-4.5 mcg/actuation HFA aerosol inhaler 1 inh inhalation BID Qty: 10.2 2RF nitroglycerin [Nitrostat] 0.4 mg tablet, sublingual 0.4 mg SUBLINGUAL Q5-15M PRN (Reason: chest pain) Qty: 30 1RF Rx Instructions: until response; do not exceed 3 doses per episode sucralfate 1 gram tablet See Rx Instructions .ROUTE .COMPLEX Qty: 60 2RF Dose Instruction: DISSOLVE ONE TABLET IN SMALL AMOUNT OF WATER AND DRINK TWICE DAILY Rx Instructions: DISSOLVE ONE TABLET IN SMALL AMOUNT OF WATER AND DRINK TWICE DAILY estradiol 1 mg tablet See Rx Instructions .ROUTE .COMPLEX Qty: 60 0RF Dose Instruction: TAKE ONE TABLET BY MOUTH EVERY DAY Rx Instructions: TAKE ONE TABLET BY MOUTH EVERY DAY amlodipine 10 mg tablet See Rx Instructions .ROUTE .COMPLEX Qty: 30 3RF Dose Instruction: TAKE 1 TABLET BY MOUTH DAILY FOR HIGH BLOOD PRESSURE Rx Instructions: TAKE 1 TABLET BY MOUTH DAILY FOR HIGH BLOOD PRESSURE pantoprazole 40 mg tablet,delayed release (DR/EC) 40 mg PO DAILY Qty: 90 0RF Rx Instructions: TAKE ONE TABLET BY MOUTH DAILY clopidogrel 75 mg tablet See Rx Instructions .ROUTE .COMPLEX Qty: 30 5RF Dose Instruction: TAKE 1 TABLET BY MOUTH DAILY Rx Instructions: TAKE 1 TABLET BY MOUTH DAILY oxycodone 10 mg tablet 10 mg PO Q6H MDD No>2 per day PRN (Reason: pain) 30 Days Qty: 60 0RF methadone 5 mg tablet 5 mg PO TID 30 Days Qty: 120 0RF Rx Instructions: TID dosing, 1 1/2 tablets (7.5 mg) - 1 tablet (5 mg) - 1 1/2 tablets (7.5 mg) lisinopril-hydrochlorothiazide 20-25 mg tablet 1 tab PO QAM Qty: 90 3RF cholecalciferol (vitamin D3) 125 mcg (5,000 unit) capsule 125 mcg PO DAILY Qty: 30 2RF alendronate 10 mg tablet 10 mg PO DAILY 30 Days Qty: 30 2RF metoprolol succinate 50 mg tablet extended release 24 hr See Rx Instructions .ROUTE .COMPLEX Qty: 180 3RF Dose Instruction: TAKE 1 TABLET BY MOUTH TWICE DAILY FOR HIGH BLOOD PRESSURE Rx Instructions: TAKE 1 TABLET BY MOUTH TWICE DAILY FOR HIGH BLOOD PRESSURE ondansetron HCl 4 mg tablet 4 mg PO Q8H PRN (Reason: nausea and vomiting) 4 Days Qty: 12 4RF bupropion HCl 300 mg tablet extended release 24 hr 300 mg PO DAILY Qty: 90 0RF diazepam 5 mg tablet 5 mg PO DAILY Qty: 30 0RF buspirone 10 mg tablet 10 mg PO TID Qty: 90 3RF Rx Instructions: pt is to take 10mg and the 15mg together because they don't have 25 mg and thats what the DrBrittni wants her to have buspirone 15 mg tablet 15 mg PO TID Qty: 90 2RF methadone 5 mg tablet 5 mg PO TID 30 Days Qty: 120 0RF Rx Instructions: TID dosing, 1 1/2 tablets (7.5 mg) - 1 tablet (5 mg) - 1 1/2 tablets (7.5 mg) oxycodone 10 mg tablet 10 mg PO Q6H MDD No>2 per day PRN (Reason: pain) 30 Days Qty: 60 0RF valacyclovir 500 mg tablet 500 mg PO DAILY Rx Instructions: TAKE ONE TABLET BY MOUTH DAILY Referrals Follow up/Referrals: Roby Paredes DO [Primary Care Provider] - See instructions Aldair Bell MD [Staff Physician] - See instructions Activity Restrictions/Add. Instructions Additional Instructions/Restrictions: You were evaluated in the emergency department today. At this time, workup is reassuring. Please follow-up closely with cardiology as well as your primary care provider. Return to the emergency department right away for new or worsening symptoms. Clinical Impressions Clinical Impression: Chest pain Stand Alone Forms Stand Alone Forms: Work/School Release Instructions Patient Instructions: DI for Atypical Chest Pain Print Language Print Language: Barbadian Discharge ED Provider: Octavia Zafar HPI General Chief Complaint: Chest Pain Stated Complaint: chest pain Time Seen by Provider: 03/03/24 11:36 Mode of Arrival: EMS Source of Information: Patient Limitations: No Limitations Description of Symptoms (Recalled from ER Triage Doc. by RN): pt presents to ED with c/o chest pain. pt was being seen in dr berumen office pt reports that she began to have chest pain on the way to the office. pt did take 2 nitro pills and was able to have some relief. History of Present Illness HPI narrative: This patient is a 63-year-old female with a history of CAD, GERD, hypertension, hyperlipidemia, tobacco use presenting to the emergency department for evaluation with concern for chest pain. Patient reports that she was on her way to follow-up with neurology for recurrent headaches in the setting of concussion and she started spearing seeing symptoms that felt heartburn. She notes that she could not think of anything that would have triggered heartburn. She then developed back pain, diaphoresis, and some shortness of breath, so she decided that it must not be heartburn. She tried taking nitroglycerin with some improvement in her symptoms after 2 doses, but she continued to have chest pressure and back pain. She then called EMS. EMS did a twelve-lead EKG which was reassuring and administered aspirin. Patient has since had resolution of her symptoms with the exception of some back pain. No other concerns noted at this time. Symptoms all started around 10:30 AM. She does complain of headache that started after taking the nitroglycerin. Related Data Home Medications ?Medication ?Instructions ?Recorded ?Confirmed valacyclovir 500 mg tablet 500 mg PO DAILY herpes 05/30/22 01/13/24 ranolazine 500 mg tablet,extended 500 mg PO BID 01/21/23 01/13/24 release,12 hr Previous Rx's ?Medication ?Instructions ?Recorded aspirin 81 mg tablet,delayed 81 mg PO DAILY Heart disease #90 06/25/22 release (Adult Low Dose Aspirin) tabs rosuvastatin 40 mg tablet 40 mg PO HS Cholesterol #90 tabs 06/25/22 nitroglycerin 0.4 mg sublingual 0.4 mg sublingual Q5-15M PRN chest 09/12/22 tablet (Nitrostat) pain #30 tabs sucralfate 1 gram tablet See Rx Instructions .Route 01/31/23 .COMPLEX #60 tabs estradiol 1 mg tablet See Rx Instructions .Route 02/06/23 .COMPLEX #60 tabs diclofenac sodium 3 % topical gel 1 applic topical BID #100 grams 05/15/23 amlodipine 10 mg tablet See Rx Instructions .Route 06/10/23 .COMPLEX #30 tabs pantoprazole 40 mg tablet,delayed 40 mg PO DAILY acid reflux #90 tabs 06/12/23 release clopidogrel 75 mg tablet See Rx Instructions .Route 07/12/23 .COMPLEX #30 tabs oxycodone 10 mg tablet 10 mg PO Q6H PRN pain 30 days #60 07/30/23 tabs methadone 5 mg tablet 5 mg PO TID Chronic pain 30 days 08/12/23 #120 tabs lisinopril 20 1 tab PO QAM BP #90 tabs 08/16/23 mg-hydrochlorothiazide 25 mg tablet alendronate 10 mg tablet 10 mg PO DAILY 30 days #30 tabs 08/28/23 cholecalciferol (vitamin D3) 125 125 mcg PO DAILY #30 caps 08/28/23 mcg (5,000 unit) capsule metoprolol succinate 50 mg See Rx Instructions .Route 10/07/23 tablet,extended release 24 hr .COMPLEX #180 tabs albuterol sulfate 90 mcg/actuation 2 puff inhalation Q4-6H PRN 11/21/23 aerosol inhaler Wheezing #8.5 grams ondansetron HCl 4 mg tablet 4 mg PO Q8H PRN nausea and 12/11/23 vomiting 4 days #12 tabs budesonide-formoterol HFA 80 1 inh inhalation BID #10.2 grams 12/17/23 mcg-4.5 mcg/actuation aerosol inhaler (Symbicort) bupropion HCl 300 mg 24 hr tablet, 300 mg PO DAILY #90 tabs 01/30/24 extended release diazepam 5 mg tablet 5 mg PO DAILY #30 tabs 02/03/24 buspirone 10 mg tablet 10 mg PO TID Depression #90 tabs 02/24/24 buspirone 15 mg tablet 15 mg PO TID #90 tabs 02/24/24 methadone 5 mg tablet 5 mg PO TID Chronic pain 30 days 02/24/24 #120 tabs oxycodone 10 mg tablet 10 mg PO Q6H PRN pain 30 days #60 02/24/24 tabs Allergies Allergy/AdvReac Type Severity Reaction Status Date / Time No Known Allergies Allergy Verified 03/03/24 10:41 [facility] Disclaimer: The information contained in this section may have been updated after the patient was seen, as this information can be updated by other users. Medical History Posttraumatic stress disorder Stomach ache Black stool Coronary artery disease Herpes Asthma Depression Anxiety GERD (gastroesophageal reflux disease) DDD (degenerative disc disease) Cervical stenosis of spinal canal Surgical History Hx of cholecystectomy H/O bilateral mastectomy Family History Other Cancer Heart attack Social History Smoking Status: Current every day smoker tobacco type: cigarettes packs per day: 1 alcohol intake: never substance use type: former substance user current occupational status: disabled Travel in the last 8 weeks: None household members: none housing: apartment Other Medical History Have you received the Flu Vaccine for this season: No Have you received the Pneumonia Vaccine: Yes ROS Obtained: Yes All systems reviewed & no additional complaints except as documented Physical Exam General General appearance: alert and in no apparent distress Head Head exam: atraumatic and normocephalic Eye Eye exam: Present normal appearance, PERRL and EOMI ENT ENT exam: Present normal exam, normal oropharynx, mucous membranes moist and normal external ear exam Neck Neck exam: Present normal inspection, full ROM and trachea midline; Absent tenderness Chest Chest inspection: Present normal inspection and symmetric chest wall rise; Absent tenderness Respiratory Respiratory exam: Present normal lung sounds bilaterally; Absent respiratory distress, wheezes, stridor or accessory muscle use Cardiovascular Cardiovascular exam: Present regular rate and normal rhythm Abdominal Exam Abdominal exam: Present soft; Absent distention, tenderness or guarding Extremities Exam Extremities exam: Present normal inspection, full ROM and normal capillary refill; Absent tenderness or edema Back Exam Back exam: Present normal inspection and full ROM; Absent tenderness Neurological Exam Neurological exam: Present alert, oriented X3, CN II-XII intact and normal gait; Absent motor sensory deficit Psychiatric Psychiatric exam: Present normal affect and normal mood Skin Skin exam: Present warm and dry HEART Score HEART Score HEART Score assessment performed?: Yes History (anamnesis): Moderately suspicious ECG: Normal Age: 45-65 years Risk factors: Atherosclerosis history Troponin: </= normal limit HEART Score: 4 Critical Care Critical Care Time Critical Care Time: No Medical Decision Making Kei Inquiry Pt receiving controlled substance: No Vital Signs Vital Signs: 03/03/24 11:43 03/03/24 12:30 03/03/24 13:30 Temperature 97.6 F Temperature Source Oral Pulse Rate 52 L 62 Pulse Rate [Left Radial] 62 Respiratory Rate 16 13 7 L Blood Pressure 134/76 126/75 Blood Pressure [Right Arm] 132/82 Blood Pressure Mean [Right Arm] 98 02 Sat by Pulse Oximetry 96 96 96 Oxygen Delivery Method Room Air Room Air Room Air 03/03/24 14:00 03/03/24 14:30 Temperature Temperature Source Pulse Rate 56 L 56 L Pulse Rate [Left Radial] Respiratory Rate 8 L 9 L Blood Pressure 111/79 131/76 Blood Pressure [Right Arm] Blood Pressure Mean [Right Arm] 02 Sat by Pulse Oximetry 95 95 Oxygen Delivery Method Room Air Room Air Lab Data Labs: Lab Results 03/03/24 11:36: WBC 6.4, RBC 4.63, Hgb 14.5, Hct 44.2, MCV 95.4, MCH 31.3 H, MCHC 32.8, RDW 13.8, Plt Count 213, MPV 8.9, Neut % (Auto) 53.6, Lymph % (Auto) 36.8, [place] % (Auto) 6.0, Eos % (Auto) 2.5, Baso % (Auto) 1.0, Neut # (Auto) 3.4, Lymph # (Auto) 2.4, [place] # (Auto) 0.4, Eos # (Auto) 0.2, Baso # (Auto) 0.1, HIV 1&2 Antibody Rapid Nonreactive 03/03/24 11:50: D-Dimer 1.08 H, Sodium 141, Potassium 4.2, Chloride 109 H, Carbon Dioxide 28, Anion Gap 8.2, BUN 16, Creatinine 0.70, Estimated Creat Clear 78, Estimated GFR 84, Est GFR ( Amer) 102, Glucose 107 H, Calcium 9.1, Total Bilirubin 0.3, AST 33, ALT 20, Alkaline Phosphatase 72, Troponin I < 0.01, NT-Pro-B Natriuret Pep 245 H, Total Protein 6.7, Albumin 3.7, Globulin 3.0, Albumin/Globulin Ratio 1.2 03/03/24 14:52: Troponin I < 0.01 03/03/24 11:36 03/03/24 11:50 Response Orders (Tests/Meds): ED MEDICATIONS Generic Name Dose Route Start Last Admin Trade Name Freq PRN Reason Stop Dose Admin Sodium Chloride 8 ml 03/03/24 12:04 Sodium Chloride 0.9% 10ml Vial IV 04/02/24 12:03 NEEDED PRN dilute pepcid Discontinued Medications Generic Name Dose Route Start Last Admin Trade Name Freq PRN Reason Stop Dose Admin Acetaminophen 1,000 mg 03/03/24 12:04 03/03/24 12:17 Acetaminophen 500mg Tab PO 03/03/24 12:05 1,000 mg ONCE ONE Administration Belladonna Alkaloids 60 ml 03/03/24 12:04 03/03/24 12:17 Belladonna Alkaloids 60 Ml Ml PO 03/03/24 12:05 60 ml ONCE ONE Administration Famotidine 20 mg 03/03/24 12:04 03/03/24 12:17 Famotidine 20mg/2ml Vial IV 03/03/24 12:05 20 mg ONCE ONE Administration Iopamidol 80 ml 03/03/24 13:07 03/03/24 13:08 Iopamidol-370 (76%);100ml Bottle IV 03/03/24 13:08 80 ml ONCE ONE Administration Ketorolac Tromethamine 15 mg 03/03/24 12:04 03/03/24 12:17 Ketorolac 30mg/Ml Vial IV 03/03/24 12:05 15 mg ONCE ONE Administration Metoclopramide HCl 5 mg 03/03/24 16:30 Metoclopramide Hcl 10mg/2ml Vial IVP 04/02/24 16:29 ACHS ANIBAL Metoclopramide HCl 5 mg 03/03/24 12:05 03/03/24 12:29 Metoclopramide Hcl 10mg/2ml Vial IVP 03/03/24 12:06 5 mg ONCE ONE Administration Sodium Chloride 50 ml 03/03/24 13:07 03/03/24 13:08 0.9 % Sodium Chloride 50 Ml Vial IV 03/03/24 13:08 50 ml ONCE ONE Administration Sodium Chloride 10 ml 03/03/24 13:07 03/03/24 13:08 Sodium Chloride 0.9% 10ml Syr (Rad Only) IV 03/03/24 13:08 10 ml ONCE ONE Administration ORDERS Category Date Time Status CTA Chest [CT angio chest PE protocol] Stat Cat Scan 03/03/24 12:42 Completed XR chest portable Stat Exams 03/03/24 11:34 Completed BNP [NT Pro Brain Natriuretic Pep.] Stat Lab 03/03/24 11:50 Completed Complete Blood Count Auto Diff Stat Lab 03/03/24 11:36 Completed Comprehensive Metabolic Panel Stat Lab 03/03/24 11:50 Completed D-Dimer Stat Lab 03/03/24 11:50 Completed HIV (1&2) Antibody Rapid Stat Lab 03/03/24 11:36 Completed Troponin I Q3H Lab 03/03/24 14:52 Completed Troponin I Q3H Lab 03/03/24 17:45 Ordered Troponin I Stat Lab 03/03/24 11:50 Completed ECG Data Tracing #1: Attestation: I reviewed this ECG and interpreted as documented below: ECG Narrative: Sinus bradycardia with a ventricular to [address] changes concerning for ischemia. Normal axis and intervals. ECG initial impression date: 03/03/24 ECG initial impression time: 11:36 MDM Narrative Medical Decision Narrative: In summary, this patient is a 63-year-old female presenting to the Emergency Department for evaluation of chest pain. Differential diagnoses considered include but are not limited to ACS, dysrhythmia, GERD, costochondritis, PE, pneumonia. Ruling out the most morbid conditions drove assessment. It should be noted patient's history includes CAD which may not be at goal therapy. This complicates all aspects of care by increasing patient's risk for morbidity. On exam, the patient is sitting upright in no acute distress. She complains of some mild back pain at this time as well as headache after taking the nitroglycerin, but no other concerns or complaints. Vitals are reassuring on cardiac telemetry. EKG obtained is reassuring. Workup included CBC, CMP, troponin, D-dimer, BNP, chest x-ray. She was given oral aspirin prior to arrival. She was given GI cocktail as well as IV Toradol, Pepcid, Reglan, oral Tylenol. I independently interpreted chest x-ray prior to the radiologist read and noted no acute focal consolidation. Please see their read for final interpretation. Labs were obtained that demonstrated elevated D-dimer, for which CT PE protocol was ordered. Initial labs including initial troponin reassuring. BNP not significantly elevated. At 1330, patient was placed in ED observation status pending second troponin to determine whether or not the patient would be appropriate for discharge versus admission. The patient was provided serial reevaluations and cardiac monitoring while awaiting ultimate disposition. Second troponin resulted and is negative. Exam is reassuring and patient has remained asymptomatic with normal vitals on cardiac telemetry. Given reassuring workup and exam, it is felt that the patient is appropriate for discharge at 1600. Total ED observation time was 2 hours and 30 minutes. I had a [id number] visit with the patient when providing discharge instructions. The total time involved in discharging this patient was less than 30 minutes. Strict return precautions were given as well as close follow-up instructions for cardiology and primary care
[2024-03-03] MEDS: ACETAMINOPHEN 500MG TAB 1000 MG PO (12:17)
[2024-03-03] MEDS: KETOROLAC 30MG/ML VIAL 15 MG IV (12:17)
[2024-03-03] MEDS: FAMOTIDINE 20MG/2ML VIAL 20 MG IV (12:17)
[2024-03-03] MEDS: BELLADONNA ALKALOIDS 60 ML ML PO (12:17)
[2024-03-03 12:24] LABS: Alanine Aminotransferase 20 U/L (12-78); Albumin Level 3.7 g/dl (3.5-5.0); Albumin/Globulin Ratio 1.2 (1.1-1.8); Alkaline Phosphatase 72 U/L (38-126); Anion Gap 8.2 mEq/L (5-15); Aspartate Amino Transferase 33 U/L (14-36); Bilirubin,Total 0.3 mg/dl (0.2-1.3); Blood Urea Nitrogen 16 mg/dl (7-17); Calcium 9.1 mg/dl (8.4-10.2); Carbon Dioxide 28 mmol/L (22.0-30.0); Chloride 109 mmol/L (98-107); Creatinine Clearance Estimated 78 mL/min (50-200); Estimated Glomerular Filt Rate 84 ml/min (>60); GFR (African American) 102 ML/MIN (>60); Glucose 107 mg/dl (74-100); Potassium 4.2 mmoL/L (3.5-5.1); Sodium 141 mmol/L (136-145); Total Protein,Serum 6.7 g/dl (6.3-8.2)
[2024-03-03 12:29] LABS: D-Dimer 1.08 ug/mL (0.0-0.5)
[2024-03-03] MEDS: METOCLOPRAMIDE HCL 10MG/2ML VIAL 5 MG IVP (12:29)
[2024-03-03 12:30] VITALS: BP 134/76; PULSE 52; RESP 13; O2SAT 96
[2024-03-03 12:38] LABS: NT Pro Brain Natriuretic Pep. 245 pg/mL (0-125)
--- NOTE | 2024-03-03 12:42 | CT_ITS ---
FINAL REPORT TECHNIQUE: Then section axial CT images of the chest were obtained with contrast. Three-D reformatted images were also obtained.This study was performed with techniques to keep radiation doses as low as reasonably achievable (ALARA). Individualized dose reduction techniques using automated exposure control or adjustment of mA and/or kV according to the patient's size were employed. CLINICAL HISTORY: chest pain elevated dimer COMPARISON: 05/30/2022 FINDINGS: There is no evidence of pulmonary embolism. There is no evidence of thoracic aortic aneurysm or dissection. There is no evidence of mediastinal or hilar mass or adenopathy. There is no evidence of pulmonary mass or suspicious nodule. No localized inflammatory process is seen within the lungs. Mild scarring is noted in the lung bases. Limited images of the upper abdomen are unremarkable. IMPRESSION: No evidence of pulmonary embolism. No mass or localized inflammatory process. Reviewed, Interpreted and Dictated by Aldair Serrato III, MD Transcribed by Luba El Authenticated and [facility]
[2024-03-03 12:49] LABS: Troponin I < 0.01 ng/ml (0.00-0.034)
[2024-03-03] MEDS: IOPAMIDOL-370 (76%);100ML BOTTLE 80 ML IV (13:08)
[2024-03-03] MEDS: 0.9 % SODIUM CHLORIDE 50 ML VIAL IV (13:08)
[2024-03-03] MEDS: SODIUM CHLORIDE 0.9% 10ML SYR (RAD ONLY) 10 ML IV (13:08)
[2024-03-03 13:30] VITALS: BP 126/75; PULSE 62; RESP 7; O2SAT 96
[2024-03-03 14:00] VITALS: BP 111/79; PULSE 56; RESP 8; O2SAT 95
[2024-03-03 14:30] VITALS: BP 131/76; PULSE 56; RESP 9; O2SAT 95
[2024-03-03 15:30] LABS: HIV (1&2) Antibody Rapid NONREACTIVE (NONREACTIVE)
--- NOTE | 2024-03-03 15:31 | PC.NURSE ---
I called lab to check on the results for her second trop. They report it will be ten minutes.
[2024-03-03 15:42] LABS: Troponin I < 0.01 ng/ml (0.00-0.034)
[2024-03-03 16:14] VITALS: BP 160/115; PULSE 60; RESP 12; TEMP 36.7; O2SAT 98
== END 2024-03-03 16:15 | disposition home or self-care (01) ==
PROVIDERS: Emergency Provider Emergency Medicine; PCP Internal Medicine
DX: R07.9 Chest pain, unspecified (principal); R06.02 Shortness of breath; M54.9 Dorsalgia, unspecified; R61 Generalized hyperhidrosis; R51.9 Headache, unspecified
CPT/HCPCS: 71045; 71275; 80053; 83880; 84484; 85025; 85378; 87389; 93005; 96374; 96375; 99285; J1885; J2765; Q9967; S0028

== ENCOUNTER 2024-03-05 11:54 | Outpatient (CLI) | payer MEDICARE, SELFPAY ==
[2024-03-05 12:34] LABS: Basophils # 0.1 K/mm3 (0-0.2); Basophils % 1.5 % (0.1-2.0); Eosinophils # 0.1 K/mm3 (0.0-0.4); Eosinophils % 2.2 % (0.1-12.0); Hematocrit 42.8 % (37.0-47.0); Hemoglobin 14.2 g/dL (12.2-16.2); Lymphocytes # 2.1 K/mm3 (0.7-4.5); Lymphocytes % 35.1 % (10-50); Mean Corpuscular HGB Conc 33.1 g/dL (31.8-35.4); Mean Corpuscular Hemoglobin 30.9 pg (27.0-31.2); Mean Corpuscular Volume 93.1 fl (81-99); Mean Platelet Volume 8.7 fl (7.4-10.4); Monocytes # 0.3 K/mm3 (0.1-1.0); Monocytes % 5.6 % (1.7-9.3); Neutrophils # 3.4 K/mm3 (1.8-7.8); Neutrophils % 55.6 % (37.0-80.0); Platelet Count 185 K/mm3 (142-424); White Blood Count 6.1 K/mm3 (4.8-10.8)
[2024-03-05 12:53] LABS: Alanine Aminotransferase 19 U/L (12-78); Alkaline Phosphatase 80 U/L (38-126); Anion Gap 8.3 mEq/L (5-15); Aspartate Amino Transferase 35 U/L (14-36); Bilirubin,Direct 0.4 mg/dl (0.0-0.4); Bilirubin,Total 0.4 mg/dl (0.2-1.3); Blood Urea Nitrogen 9 mg/dl (7-17); Calcium 9.2 mg/dl (8.4-10.2); Carbon Dioxide 28 mmol/L (22.0-30.0); Chloride 109 mmol/L (98-107); Chol/HDL Ratio 4.6 (1-3.5); Cholesterol 147 mg/dl (140-200); Estimated Glomerular Filt Rate 84 ml/min (>60); GFR (African American) 101 ML/MIN (>60); Glucose 88 mg/dl (74-100); HDL Cholesterol 32 mg/dl (40-60); Potassium 4.3 mmoL/L (3.5-5.1); Sodium 141 mmol/L (136-145); Total Protein,Serum 6.9 g/dl (6.3-8.2); Triglycerides 200 mg/dl (30-150); VLDL Cholesterol 40 mg/dL (0-40)
[2024-03-05 13:10] LABS: Free T4 (Free Thyroxine) 0.96 ng/dl (0.78-2.19)
[2024-03-05 13:24] LABS: Thyroid Stimulating Hormone 3.66 uIU/mL (0.465-4.68)
== END 2024-03-05 23:59 | disposition home or self-care (01) ==
LOC: LAB 11:55
PROVIDERS: PCP Internal Medicine; Visit Provider Physician Assistant
DX: I10 Essential (primary) hypertension (principal); R07.9 Chest pain, unspecified; E78.5 Hyperlipidemia, unspecified; I25.10 Atherosclerotic heart disease of native coronary artery without angina pectoris
CPT/HCPCS: 36415; 80048; 80061; 80076; 84439; 84443; 85025

== ENCOUNTER 2024-03-23 08:43 | Day surgery (SDC) | payer MEDICARE, SELFPAY ==
[2024-03-23] VITALS (10 sets, daily range): BP systolic 122–153; BP diastolic 58–86; PULSE 53–75; RESP 16–20; O2SAT 92–96; BMI 31.4
--- NOTE | 2024-03-23 07:11 | IR_ITS ---
APPROVED REPORT Patient Location: Outpatient [facility] Cashier: Junior Davidson, RT (R) PROCEDURES Left heart catheterization Left ventriculogram Selective coronary angiogram INDICATION Known coronary disease, Accelerated angina pectoris, Informed consent was obtained prior to the procedure. COMPLICATIONS NONE Estimated Blood Loss: LESS THAN 10 ML TECHNIQUE One percent lidocaine was used to anesthetize the right groin. The right femoral artery was accessed via the Seldinger technique. A 4-Citizen Of [place] sheath was placed in the right femoral artery. The JL-4 and JR-4 catheter was also used to perform left heart catheterization left ventriculogram and selective coronary angiogram. At the end of the procedure the patient was transferred to the post-op holding area in stable condition for arterial sheath removal. ANGIOGRAPHIC RESULTS The left main artery Normal The left anterior descending artery Has a stent in the proximal through mid segment which is widely patent with minimal in-stent restenosis and excellent proximal distal transitioning. The stent bifurcates from the ostium of a large first diagonal artery and extends throughout its proximal mid and distal segment which is also widely patent with minimal in-stent restenosis and excellent distal transitioning with no angiographic evidence of ostial jailing The circumflex artery Codominant and has mid vessel 10 to 20% stenosis with 10 to 20% stenoses in between the first and second obtuse marginal artery The right coronary artery Is codominant and has a stent in the proximal to mid segment which is widely patent with minimal in-stent restenosis excellent proximal distal transitioning The WILSON ventriculogram reveals Normal 60% The left ventricular end-diastolic pressure Slightly elevated at 15 to 20 mmHg IMPRESSION Patent coronary arteries as described Normal ejection fraction Elevated LVEDP PLAN 1. Continue medical management Electronically signed by : Aldair Bell MD 03/23/2024 12:16:15
[2024-03-23 09:12] LABS: Basophils # 0.1 K/mm3 (0-0.2); Basophils % 0.7 % (0.1-2.0); Eosinophils # 0.1 K/mm3 (0.0-0.4); Hematocrit 43.1 % (37.0-47.0); Hemoglobin 14.3 g/dL (12.2-16.2); Lymphocytes # 1.9 K/mm3 (0.7-4.5); Lymphocytes % 27.5 % (10-50); Mean Corpuscular HGB Conc 33.2 g/dL (31.8-35.4); Mean Corpuscular Volume 93.3 fl (81-99); Mean Platelet Volume 10.2 fl (7.4-10.4); Monocytes # 0.5 K/mm3 (0.1-1.0); Monocytes % 6.8 % (1.7-9.3); Neutrophils # 4.4 K/mm3 (1.8-7.8); Neutrophils % 62.6 % (37.0-80.0); Platelet Count 293 K/mm3 (142-424); Red Blood Count 4.62 M/mm3 (4.20-5.40); Red Cell Distribution Width 13.1 % (11.5-17.5); White Blood Count 7.1 K/mm3 (4.8-10.8)
[2024-03-23 09:30] LABS: Anion Gap 10.1 mEq/L (5-15); Blood Urea Nitrogen 15 mg/dl (7-17); Calcium 9.6 mg/dl (8.4-10.2); Carbon Dioxide 27 mmol/L (22.0-30.0); Chloride 106 mmol/L (98-107); Creatinine Clearance Estimated 77 mL/min (50-200); Estimated Glomerular Filt Rate 72 ml/min (>60); GFR (African American) 87 ML/MIN (>60); Glucose 103 mg/dl (74-100); Potassium 4.1 mmoL/L (3.5-5.1); Sodium 139 mmol/L (136-145)
[2024-03-23] MEDS: VERAPAMIL 2.5MG/ML 2ML VIAL 2.5 MG IV (11:11)
[2024-03-23] MEDS: diphenhydrAMINE 50MG/ML VIAL 50 MG IV (11:11)
[2024-03-23] MEDS: HEPARIN 1,000 UNITS/ML 10ML VIAL (CATH LAB) 10000 UNIT IV (11:12)
[2024-03-23] MEDS: FENTANYL 100MCG/2ML VIAL 50 MCG IV (11:12)
[2024-03-23] MEDS: NITROGLYCERIN 800MCG/8ML SYR (CATH LAB) 800 MCG IA (11:12)
[2024-03-23] MEDS: MIDAZOLAM HCL 1MG/ML 5ML VIAL 1 MG IV (11:12)
[2024-03-23] MEDS: LIDOCAINE 1% 10ML MDV 20 ML IJ (11:12)
[2024-03-23] MEDS: HEPARIN 1,000 UNITS/500ML NS (CATH LAB) 3000 UNIT IV (11:18)
[2024-03-23] MEDS: 0.9 % SODIUM CHLORIDE 500 ML 25 ML IV (11:19)
[2024-03-23] MEDS: IOPAMIDOL-370 (76%);100ML BOTTLE 50 ML IV (12:08)
== END 2024-03-23 15:14 | disposition home or self-care (01) ==
LOC: CATHLAB 08:44
PROVIDERS: PCP Internal Medicine; Visit Provider Internal Medicine
DX: I25.118 Atherosclerotic heart disease of native coronary artery with other forms of angina pectoris (principal); I10 Essential (primary) hypertension; R07.9 Chest pain, unspecified; E78.5 Hyperlipidemia, unspecified; F17.210 Nicotine dependence, cigarettes, uncomplicated; Z79.899 Other long term (current) drug therapy
CPT/HCPCS: 80048; 85025; 93458; 99152; C1725; C1769; J1200; J1644; J2250; J3010; Q9967

== ENCOUNTER 2024-04-22 09:05 | Outpatient (CLI) | payer MEDICARE, SELFPAY ==
[2024-04-22 18:24] LABS: Alanine Aminotransferase 35 U/L (12-78); Albumin Level 3.8 g/dl (3.5-5.0); Albumin/Globulin Ratio 1.4 (1.1-1.8); Alkaline Phosphatase 109 U/L (38-126); Anion Gap 11.6 mEq/L (5-15); Aspartate Amino Transferase 48 U/L (14-36); Bilirubin,Total 0.3 mg/dl (0.2-1.3); Blood Urea Nitrogen 10 mg/dl (7-17); Carbon Dioxide 27 mmol/L (22.0-30.0); Chloride 108 mmol/L (98-107); Estimated Glomerular Filt Rate 72 ml/min (>60); GFR (African American) 87 ML/MIN (>60); Globulin 2.8 g/dL (1.3-3.2); Glucose 90 mg/dl (74-100); Potassium 4.6 mmoL/L (3.5-5.1); Sodium 142 mmol/L (136-145); Total Protein,Serum 6.6 g/dl (6.3-8.2)
== END 2024-04-22 23:59 | disposition home or self-care (01) ==
LOC: LAB.DROPOF 04-23 09:06
PROVIDERS: PCP Internal Medicine; Visit Provider Internal Medicine
DX: I10 Essential (primary) hypertension (principal)
CPT/HCPCS: 80053

== ENCOUNTER 2024-10-29 15:39 | Outpatient (CLI) | payer MEDICARE, SELFPAY ==
--- OUTSIDE RECORDS SUMMARY | 2024-10-29 15:42 | XMS_ITS | Clinical Summary ---
Author Organization [facility] Address [address] [place] [address] Care Team Providers Care Assistant Professor Of Life Sciences Name Role Phone Lavon Higuera MD Primary Care Provider [phone] Allergies Active Allergy Reactions Criticality Noted Date Comments Adhesive Tape Rash Low 12/11/2018 tears skin off Medications aspirin 81 MG EC tablet Take 1 tablet by mouth Daily. 30 tablet 9 Active rosuvastatin (CRESTOR) 40 MG tablet Take 1 tablet by mouth every night at bedtime. Active diazePAM (VALIUM) 10 MG tablet Take 1 tablet by mouth 2 (Two) Times a Day As Needed for Anxiety. Active hydrOXYzine (ATARAX) 50 MG tablet Take 1 tablet by mouth 3 (Three) Times a Day As Needed for Itching. Active nitroglycerin (NITROSTAT) 0.[address] 1 tablet under the tongue Every 5 (Five) Minutes As Needed for Chest Pain. Take no more than 3 doses in 15 minutes. Active conjugated estrogens (PREMARIN) 0.625 MG/GM vaginal creamIndications :Acute cystitis with hematuria Insert into the vagina Daily. 30 g 9 Active Additional Information Patient taking differently:VaginalAs Needed, Reported on 07/16/2022 valACYclovir (VALTREX) 500 MG tablet Take 1 tablet by mouth Daily. Active amLODIPine (NORVASC) 10 MG tablet TAKE ONE TABLET BY MOUTH DAILY 30 tablet 10 0 Active estradiol (ESTRACE) 1 MG tabletIndication s:Post-menopause on HRT (hormone replacement therapy) Take 1 tablet by mouth Daily for 184 days. 30 tablet 5 0 Active clopidogrel (PLAVIX) 75 MG tablet Take 1 tablet by mouth Daily. Active metoprolol succinate XL (TOPROL-XL) 50 MG 24 hr tablet Take 1 tablet by mouth 2 (Two) Times a Day. Active sucralfate (CARAFATE) 1 g tablet Take 1 tablet by mouth 2 (Two) Times a Day. Active pantoprazole (PROTONIX) 40 MG EC tablet Take 1 tablet by mouth 2 (Two) Times a Day. 60 tablet 11 3 Active buPROPion XL (WELLBUTRIN XL) 300 MG 24 hr tablet Take 1 tablet by mouth Every Morning. 3 Active albuterol sulfate HFA 108 (90 Base) MCG/ACT inhaler Inhale 2 puffs Every 4 (Four) Hours As Needed for Wheezing. Active oxyCODONE (ROXICODONE) 10 MG tablet 4 Active budesonide-formo terol (Symbicort) 80-4.5 MCG/ACT inhaler 2 (Two) Times a Day. 3 Active methadone (DOLOPHINE) 5 MG tablet 4 Active lisinopril-hydro chlorothiazide (PRINZIDE,ZESTOR ETIC) 20-25 MG per tablet take 1 tab orally every morning for BP Active isosorbide mononitrate (IMDUR) 60 MG 24 hr tablet Take 1 tablet by mouth Daily. Active betamethasone valerate (VALISONE) 0.1 % cream Apply 1 Application topically to the appropriate area as directed 2 (Two) Times a Day. Active B Zcpijuh-O-Jkumyy -D-Zinc-FA (VITAL-D RX PO) Take 1.25 mg by mouth 1 (One) Time Per Week. Active Cariprazine HCl (Vraylar) 1.5 MG capsule capsule Take 1 capsule by mouth Daily. Active ranolazine (RANEXA) 500 MG 12 hr tablet TAKE 1 TABLET BY MOUTH TWICE DAILY 180 tablet 3 4 Active Active Problems Problem Noted Date Diagnosed Date Chronic neck pain 05/13/2023 Assessment & Plan (05/13/2023 2:12 PM EST): Currently she is followed by her primary care physician who has her on chronic methadone which is an appropriate long-acting medication. He has her on oxycodone for breakthrough pain. Believe this is adequate and good therapy. I encouraged her to work with him on potentially titrating however reassured the patient. I did indicate the patient if she did establish care or she would likely be referred to pain management for chronic opiate management. She voices understanding and will stay with her current provider. Dark stools 07/02/2022 Overview (07/02/2022): Added automatically from request for surgery [id number] Post-menopause on HRT (hormone replacement thera py) 11/24/2019 Fibrocystic breast changes, bilateral 11/24/2019 Hepatitis C 09/22/2018 Coronary artery disease of n ative artery of [place] heart with stable angina pectoris 09/22/2018 Tobacco dependence 09/22/2018 Mixed hyperlipidemia 09/22/2018 Essential hypertension Hyperlipidemia Herpes Depression Anxiety Resolved Problems Problem Noted Date Diagnosed Date Resolved Date Surgical menopause 12/11/2018 0 Fibrocystic breast 0 Immunizations Immunization Administration Dates Next Due Hepatitis A 07/04/2019,10/20/2018 Shingrix 03/13/2019,10/20/2018 Family History Medical History Relation Name Comments Heart attack Father Breast cancer Mother Relation Name Status Comments Father Mother Social History Tobacco Use Types Packs/Day Years Used Date Smoking Tobacco: Every Day Cigarettes 0.3 53.6 Started: 03/25/1971 Passive Smoke Exposure: Past Smokeless Tobacco: Never Comments:1-2 cigs daily Alcohol Use Standard Drinks/Week Comments Yes 0 (1 standard drink = 0.6 oz pur e alcohol) OCCASSIONAL AUDIT-C Answer Date Recorded Frequency of Alcohol Consumption Never 06/27/2018 Average Number of Drinks Not on file 019 Frequency of Binge Drinking Not on file 07/2018 Abuse Screen Answer Date Recorded Unsafe at Home or Work/School Not on file Feels Threatened by Someone? Not on file 02/2024 Does Anyone Keep You from Co ntacting Others or Doint Things Outside the Home? Not on file 07/05/2023 Physical Sign of Abuse Present Not on file 0 07/05/2023 Housing Stability Answer Date Recorded Current Living Arrangements Not on file 06/23 Potentially Unsafe Housing Conditions Not on michaela e 07/05/2023 Family and Community Support Answer Aakash e Recorded Help with Day-to-Day Activities Not on file 12/31/2022 Lonely or Isolated Not on file 12/31/2022 Employment Answer Date Recorded Do you want help finding or keeping work or a nessa b? Not on file 12/31/2022 Disabilities Answer Date Recorded Concentrating, Remembering, or Making Decisions Difficulty Not on file 07/05/2023 Doing Errands Independently Difficulty Not on fi le 07/05/2023 Education Answer Date Recorded Help with school or training? Not on file Preferred Language Not on file 12/31/2022 PHQ-2 Answer Date Recorded Retired PHQ-9: Brief Depression Severity Measure Score 0 05/13/2023 Comments No Sex and Gender Information Value Date Recorded Sex Assigned at Not on file Legal Sex Female 11:51 AM EDT Gender Identity Not on file Sexual Orientation Not on file Last Filed Vital Signs Vital Sign Reading Time Taken Comments Blood Pressure 126/72 05/13/2023 12:46 PM EST Pulse 71 05/13/2023 12:46 PM EST Temperature 36.1 C (97 F) 07/02/2022 3:55 PM EDT Respiratory Rate 16 07/02/2022 4:20 PM EDT Oxygen Saturation 94% 05/13/2023 12: 46 PM EST Inhaled Oxygen Concentration - - Weight 82.5 kg (181 lb 12.8 oz) 024 12:46 PM EST Height 167.6 cm (5' 5.98 ) 05/13/2023 1 2:46 PM EST Body Mass Index 29.36 05/13/2023 12:46 PM EST Plan of Treatment Health Maintenance Due Date Last Done Comments DXA SCAN 1960 Pneumococcal Vaccine 50+ (1 of 2 - PCV) 1977 TDAP/TD VACCINES (1 - Tdap) 1977 COLOGUARD 2003 COLON CANCER SCREENING 5 YEA R SIGMOIDOSCOPY 2003 CT COLONOGRAPHY 2003 FECAL OCCULT BLOOD TEST 2003 FIT Testing (1 year) 2003 ANNUAL WELLNESS VISIT 09/03/2018 LIPID PANEL 05/13/2020 05/13/2019 COVID-19 Vaccine (1 - 2023-2 5 season) 2023 INFLUENZA VACCINE 12/23/2024 COLONOSCOPY 10/02/2027 10/01/2022, 02/27/2019 COLORECTAL CANCER SCREENING 10/02/2027 HEPATITIS C SCREENING Completed 09/22/2018 ZOSTER VACCINE Completed 03/13/2019, 10/20/2018 Hepatitis B Aged Out No longer eligi ble based on patient's age to complete this topic Procedures Procedure Name Priority Date/Time Associated Diagnosis Comments SCANNED - COLONOSCOPY 10/01/2022 LIPID PANEL Routine 05/13/2019 2:13 PM EST Mixed hyperlipidemia from Last 3 Months or Most Recently Relevant to Health Maintenance Results * SCANNED - COLONOSCOPY (10/01/2022) Mc Sauceda MD CHART REVIEW T ABS Final Result * Lipid Panel (05/13/2019 2:13 PM EST) Total Cholesterol 138 0 - 200 mg/dL 05/13/2019 10:53 PM EST [facility] Triglycerides 65 0 - 150 mg/dL 05/13/2019 10:53 PM EST [facility] HDL Cholesterol 50 40 - 60 mg/dL 05/13/2019 10:53 PM EST [facility] LDL Cholesterol 75 0 - 100 mg/dL 05/13/2019 10:53 PM EST [facility] VLDL Cholesterol 13 5 - 40 mg/dL 05/13/2019 10:53 PM EST [facility] LDL/HDL Ratio 1.50 05/13/2019 10:53 PM EST [facility] Blood Venipuncture / Unknown 05/13/2019 2:13 PM EST 05/13/2019 2:13 PM EST [facility] - 05/13/2019 10:53 PM EST Cholesterol Reference Ranges (U.S. Department of Health and Human Services ATP III Classifications) Desirable <200 mg/dL Borderline High 200-239 mg/dL High Risk >240 mg/dL Triglyceride Reference Ranges (U.S. Department of Health and Human Services ATP III Classifications) Normal <150 mg/dL Borderline High 150-199 mg/dL High 200-499 mg/dL Very High >500 mg/dL HDL Reference Ranges (U.S. Department of Health and Human Services ATP III Classifcations) Low <40 mg/dl (major risk factor for CHD) High >60 mg/dl ('negative' risk factor for CHD) LDL Reference Ranges (U.S. Department of Health and Human Services ATP III Classifcations) Optimal <100 mg/dL Near Optimal 100-129 mg/dL Borderline High 130-159 mg/dL High 160-189 mg/dL Very High >189 mg/dL us Junior Rahman MD LAB BLOOD ORDERABLES Final Resul t [facility]
[address] [place] [address], from Last 3 Months or Most Recently Relevant to Health Maintenance Insurance Care Teams Assistant Professor Of Life Sciences Relationship Specialty Start Date End Date Lavon Higuera MD [address] [place] [address] PCP - General Internal Medicine 05/13/23
--- OUTSIDE RECORDS SUMMARY | 2024-10-29 15:42 | XMS_ITS | Clinical Summary ---
Author Organization [facility] Address [facility] [place] [id number] Care Team Providers Care Historiography Professor Name Role Phone Junior Johnson MD Primary Care Provider [phone] Family History Medical History Relation Name Comments Breast cancer Father Breast cancer Mother Breast cancer Other Relation Name Status Comments Father Mother Other Social History Tobacco Use Types Packs/Day Years Used Date Smoking Tobacco: Every Day Alcohol Use Standard Drinks/Week Comments Yes 0 (1 standard drink = 0.6 oz pure alcohol) Alcoholic Drinks/day: Occasional alcohol use Comments Unknown Sex and Gender Information Value Date Recorded Sex Assigned at Not on file Legal Sex Female 8:38 PM EDT Gender Identity Not on file Sexual Orientation Not on file Last Filed Vital Signs Vital Sign Reading Time Taken Comments Blood Pressure 100/70 11/10/2018 9:34 AM EDT Pulse 67 11/10/2018 9:34 AM EDT Temperature - - Respiratory Rate - - Oxygen Saturation - - Inhaled Oxygen Concentration - - Weight 77.7 kg (171 lb 4.8 oz) 11/10/2018 9:30 A M EDT Height 167.6 cm (5' 6 ) 11/10/2018 9:30 AM EDT Body Mass Index 27.65 11/10/2018 9:30 AM EDT Plan of Treatment Health Maintenance Due Date Last Done Comments [facility]-Bone Density Scan 1958 [facility]-Depression Screening 1958 [facility]-/Child/Adol SDOH Screenings 1958 [facility]- SDOH Screenings 1976 [facility]-Adult SDOH Screenings 1976 [facility]-DTaP,Tdap,and Td Vaccine s (1 - Tdap) 1977 CT Colonography 2003 Colonoscopy 2003 FIT-DNA 2003 FIT 2003 FOBT 2003 Sigmoidoscopy 2003 [facility]-Colorectal Cancer Screening 2003 [facility]-Pneumococcal Vaccine: 50 + Years (1 of 1 - PCV) 2008 [facility]-Zoster Vaccines (1 of 2) 2008 [id number] Vaccine (1 - 20 24-25 season) 2023 [facility]-Influenza Vaccine (#1) 2024 [facility]-RSV Vaccine: 60+ Years o r (1 - 1-dose 75+ series) 2033 [facility]-Breast Cancer Screening Discontinued 11/21/2018 HPV Vaccines Aged Out No longer eligi ble based on patient's age to complete this topic [facility]-HIB Vaccines Aged Out No longer e ligible based on patient's age to complete this topic [facility]-Hepatitis A Vaccines Aged Out No longer eligible based on patient's age to complete this topic [facility]-IPV Vaccines Aged Out No longer e ligible based on patient's age to complete this topic [facility]-Rotavirus Vaccines Aged Out No lo nger eligible based on patient's age to complete this topic Care Teams Historiography Professor Relationship Specialty Start Date End Date Junior Johnson MD [address] [place] [address] PCP - General 08/05/20
[2024-10-29 17:24] LABS: Anion Gap 9.2 mEq/L (5-15); Blood Urea Nitrogen 10 mg/dl (7-17); Calcium 9.7 mg/dl (8.4-10.2); Carbon Dioxide 28 mmol/L (22.0-30.0); Chloride 105 mmol/L (98-107); Creatinine,Serum 0.90 mg/dl (0.52-1.04); Estimated Glomerular Filt Rate 63 ml/min (>60); GFR (African American) 76 ML/MIN (>60); Glucose 108 mg/dl (74-100); Potassium 4.2 mmoL/L (3.5-5.1); Sodium 138 mmol/L (136-145)
[2024-10-29 17:33] LABS: NT Pro Brain Natriuretic Pep. 389 pg/mL (0-125)
== END 2024-10-29 23:59 | disposition home or self-care (01) ==
LOC: LAB 15:39
PROVIDERS: PCP Internal Medicine; Visit Provider Physician Assistant
DX: I11.0 Hypertensive heart disease with heart failure (principal); I50.30 Unspecified diastolic (congestive) heart failure; I25.10 Atherosclerotic heart disease of native coronary artery without angina pectoris; Z51.81 Encounter for therapeutic drug level monitoring; Z79.899 Other long term (current) drug therapy; R94.30 Abnormal result of cardiovascular function study, unspecified
CPT/HCPCS: 36415; 80048; 83880